=== PATIENT | female | born 1950 | race Caucasian/White ===

== ENCOUNTER 2016-10-21 08:25 | Inpatient (IN) | payer MEDICAID ==
[~2016-10-21] VITALS: Ht 160 cm; Wt 52.2 kg
[2016-10-21] MEDS ORDERED: morphine 2 MG INJ IV STA (08:36)
[2016-10-21] MEDS ORDERED: SOD CHLORIDE 0.9% 500 ML IV STA (08:36)
[2016-10-21] MEDS ORDERED: ONDANSETRON 4 MG INJ IV STA (08:36)
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
[2016-10-21 09:06] LABS: ADD UMIC YES; URINE BILIRUBIN (Dip) NEGATIVE (NEGATIVE); URINE BLOOD (Dip) NEGATIVE (NEGATIVE); URINE COLOR LT. YELLOW (YELLOW); URINE GLUCOSE (Dip) NEGATIVE (NEGATIVE); URINE KETONES (Dip) TRACE (NEGATIVE); URINE LEUKOCYTE ESTERASE (Dip) NEGATIVE (NEGATIVE); URINE NITRITE (Dip) NEGATIVE (NEGATIVE); URINE TOTAL PROTEIN (Dip) TRACE (NEGATIVE); URINE UROBILINOGEN (Dip) 0.2 E.U./dL (0.1-1.0)
[2016-10-21 09:07] LABS: BASOPHILS % 0.1 % (0.0-2.0); HEMATOCRIT 44.2 % (37.0-47.0); HEMOGLOBIN 14.4 g/dl (12.0-16.0); LYMPHOCYTES # 1.5 10^3/ul (0.8-2.9); LYMPHOCYTES % 9.5 % (15.0-51.0); MEAN CORPUSCULAR HEMOGLOBIN 28.2 pg (29.0-33.0); MEAN CORPUSCULAR HGB CONC 32.6 g/dl (32.0-37.0); MEAN CORPUSCULAR VOLUME 86.7 fl (82.0-101.0); MEAN PLATELET VOLUME 8.8 fl (7.4-10.4); MONOCYTE # 0.8 10^3/ul (0.3-0.9); MONOCYTES % 5.3 % (0.0-11.0); NEUTROPHIL # 13.6 10^3/ul (1.6-7.5); NEUTROPHILS % 85.1 % (39.0-77.0); PLATELET COUNT 237 10^3/UL (140-440); RED CELL DISTRIBUTION WIDTH 13.9 % (11.5-14.5)
[2016-10-21 09:10] LABS: CONDITION 1
[2016-10-21 09:25] LABS: ALBUMIN 4.2 g/dl (3.3-4.9); CHLORIDE 98 mmol/L (97-110); POTASSIUM 3.2 mmol/L (3.5-5.1); SODIUM 143 mmol/L (135-144)
[2016-10-21 09:27] LABS: BILIRUBIN,INDIRECT 0.4 mg/dl (0-1.1); BILIRUBIN,TOTAL 0.4 mg/dl (0.2-1.3); CREATININE 0.43 mg/dl (0.44-1.00)
[2016-10-21 09:28] LABS: ALANINE AMINOTRANSFERASE 14 IU/L (13-69); ALBUMIN/GLOBULIN RATIO 1.05; ALKALINE PHOSPHATASE 135 IU/L (42-121); ANION GAP 19 (8-16); ASPARTATE AMINO TRANSFERASE 19 IU/L (15-46); BLOOD UREA NITROGEN 11 mg/dl (7-20); CALCIUM 8.7 mg/dl (8.4-10.2); CARBON DIOXIDE 29 mmol/L (21-31); GLUCOSE 155 mg/dl (70-220); TOTAL PROTEIN 8.2 g/dl (6.1-8.1)
--- NOTE | 2016-10-21 09:33 | RADRPT ---
PROCEDURE: CT Abdomen and Pelvis without contrast. CLINICAL INDICATION: Abdominal pain TECHNIQUE: CT scan of the abdomen and pelvis without contrast was performed on a multidetector hig h-resolution CT scanner. The patient was scanned without intravenous contrast. Coronal and sagittal reformatted images were obtained from the axial source images. Images were reviewed on a high-resol [employer] PACS workstation. The total exam CTDI equals 5.18 mGy and the total exam DLP equals 276.89 mGy -cm. COMPARISON: None FINDINGS: CT abdomen: The lung bases are remarkable for diffuse centrilobular emphysema. The heart size is normal, withou t pericardial thickening or effusion. The liver is normal in size and density without focal mass or intrahepatic biliary dilatation. The spleen is normal in size and homogeneous in density. The sto mach is partially collapsed, but is grossly unremarkable. The pancreas as visualized is normal. The gallbladder is markedly distended with abnormal wall thickening. No gallstone is identified by CT. There is no evidence for biliary dilatation. The adrenal glands are symmetric and normal. The kidneys are symmetrically unremarkable as well. There is 1-2 mm nonobstructing stone in the lower po le right kidney. The aorta is of normal caliber. Aortic vascular calcifications are present. There is no retroperit herrera lymphadenopathy. The andrea hepatis region is clear. There is diverticulosis of the descendin g and sigmoid colon. There is focal wall thickening of the distal descending colon with surrounding inflammatory changes in keeping with acute diverticulitis. No peridiverticular abscess is identifi ed. CT pelvis: The small bowel loops situated within the pelvis are unremarkable. There is a normal appendix. The uterus is surgically absent. There is 2.3 cm hypodensity in the left adnexa. The pelvic sidewalls and inguinal regions are clear. The sigmoid colon and rectum are remarkable for sigmoid diverticulo sis. No mass, lymphadenopathy, or free fluid is seen. No acute inflammation is seen. The surround ing osseous structures are remarkable for degenerative spondylosis of the spine. No osteolytic or o steoblastic lesion is detected. IMPRESSION: 1. Extensive diverticulosis of the descending and sigmoid colon with focal thickening of the distal descending colon with surrounding pericolonic stranding in keeping with acute diverticulitis. No p eridiverticular abscess. 2. Markedly distended gallbladder with abnormal wall thickening. No significant surrounding inflam matory changes are seen. If there is clinical concern for acute cholecystitis. Ultrasound would be helpful. 3. Normal appendix. 4. Status post hysterectomy. Approximately 2.3 cm hypodensity in the left adnexa. Pelvic ultrasou nd can be considered for further evaluation. 5. 1-2 mm tiny nonobstructing stone in the lower pole right kidney. RPTAT: BB .Susan Ward MD, MD Date Time Electronically viewed and signed by .Susan Ward MD, on 10/21/2016 09:32 .O/
[2016-10-21 09:36] LABS: SQUAMOUS EPITHELIAL CELL,UR MODERATE; URINE RBCS 0-2 /HPF (0)
[2016-10-21 09:42] LABS: TROPONIN-I < 0.012 ng/ml (0.00-0.12)
[2016-10-21] MEDS ORDERED: PIPER-TAZO 3.375 GM IV (PMX) 100 ML IVPB ONE (10:00)
--- NOTE | 2016-10-21 10:45 | RADRPT ---
PROCEDURE: US Abdomen (right upper quadrant). CLINICAL INDICATION: Abdominal pain TECHNIQUE: Multiple real-time longitudinal and transverse images of the right upper quadrant of th e abdomen were acquired utilizing a curved array transducer. Images were reviewed on a high-resoluti on PACS workstation. COMPARISON: CT abdomen and pelvis with a FINDINGS: The liver is normal in size and echogenicity without focal mass or intrahepatic biliary dilatation. The gallbladder is distended containing multiple stones and sludge. There is gallbladder wall thic kening measures up to 6 mm. No intra or extrahepatic biliary dilatation is seen. The common bile du ct measures 6-7 mm in maximal dimension. The pancreas is obscured by overlying bowel gas. No free fluid is identified. The right kidney measures 10.6 cm in length. There is normal echogenicity within the right kidney. There is no perinephric fluid collection. No hydronephrosis, mass, or calculus is seen. IMPRESSION: 1. Distended gallbladder containing multiple gallstones and sludge with abnormal wall thickening fierro ggesting acute cholecystitis in the correct clinical settings. 2. No biliary ductal dilatation. RPTAT: EE .Susan Ward MD, Date Time Electronically viewed and signed by .Susan Ward MD, on 10/21/2016 10:45 .O/
[2016-10-21 11:00] VITALS: TEMP 98.4
[2016-10-21] MEDS ORDERED: ONDANSETRON 4 MG INJ IV PRN ×2 (11:00→11:30)
[2016-10-21] MEDS ORDERED: ACETAMINOPHEN 325 MG TAB PO PRN (11:00)
--- NOTE | 2016-10-21 11:02 | ERA ---
ER Documentation Chief Complaint Date/Time DATE: 10/21/16 TIME: 10:55 Chief Complaint ABDOMINAL PAIN WITH N/V SINCE LAST NIGHT HPI 65-year-old female history of asthma, hyperlipidemia who presents with 12-24 hours of symptoms that include epigastric abdominal discomfort that is moderate associated with nonbloody nonbilious emesis, no constipation, no diarrhea. No fevers or chills, no chest pain or shortness of breath. ROS All systems reviewed and are negative except as per history of present illness. Medications Home Meds No Active Prescriptions or Reported Meds Allergies Allergies: Coded Allergies: No Known Allergy (Unverified , 10/21/16) PMhx/Soc History of Surgery: Yes (HYSTERECTOMY ) Hx Alcohol Use: No Hx Substance Use: No Hx Tobacco Use: No Smoking Status: Never smoker FmHx Family History: No diabetes Physical Exam Vitals Vital Signs Date Time Temp Pulse Resp B/P Pulse Ox O2 Delivery O2 Flow Rate FiO2 10/21/16 08:27 97.4 83 18 147/60 97 Physical Exam General: Well developed, well nourished, no acute distress Head: Normocephalic, atraumatic. Eyes: Pupils equally reactive, EOM intact ENT: Moist mucous membranes Neck: Supple, no lymphadenopathy Respiratory: Lungs clear bilaterally, no distress Cardiovascular: RRR, no murmurs, rubs, or gallops Abdominal: Soft, tenderness of epigastrium, negative Aldrich sign, no pulsatile mass, no tenderness to McBurney's point, no peritonitis : Deferred MSK: No edema, no unilateral swelling, 5/5 strength Neurologic: Alert and oriented, moving all extremities, normal speech, no focal weakness, no cerebellar signs Skin: No rash Psych: Normal mood Result Diagram: 10/21/16 0845 10/21/16 0845 Results 24 hrs Laboratory Tests Test 10/21/16 08:45 10/21/16 09:00 Alanine Aminotransferase (ALT/SGPT) 14IU/L Albumin 4.2g/dl Albumin/Globulin Ratio 1.05 Alkaline Phosphatase 135IU/L Anion Gap 19 Aspartate Amino Transf (AST/SGOT) 19IU/L Basophils # 0.010^3/ul Basophils % 0.1% Blood Morphology Comment Blood Urea Nitrogen 11mg/dl Calcium Level 8.7mg/dl Carbon Dioxide Level 29mmol/L Chloride Level 98mmol/L Creatinine 0.43mg/dl Direct Bilirubin 0.00mg/dl Eosinophils # 0.010^3/ul Eosinophils % 0.0% Globulin 4.00g/dl Glucose Level 155mg/dl Hematocrit 44.2% Hemoglobin 14.4g/dl Indirect Bilirubin 0.4mg/dl Lipase 26U/L Lymphocytes # 1.510^3/ul Lymphocytes % 9.5% Mean Corpuscular Hemoglobin 28.2pg Mean Corpuscular Hemoglobin Concent 32.6g/dl Mean Corpuscular Volume 86.7fl Mean Platelet Volume 8.8fl Monocytes # 0.810^3/ul Monocytes % 5.3% Neutrophils # 13.610^3/ul Neutrophils % 85.1% Nucleated Red Blood Cells # 0.010^3/ul Nucleated Red Blood Cells % 0.0/100WBC Platelet Count 80604^3/UL Potassium Level 3.2mmol/L Red Blood Count 5.1010^6/ul Red Cell Distribution Width 13.9% Sodium Level 143mmol/L Total Bilirubin 0.4mg/dl Total Protein 8.2g/dl Troponin I < 0.012ng/ml White Blood Count 16.010^3/ul Urine Bilirubin NEGATIVE Urine Clarity CLEAR Urine Color LT. YELLOW Urine Glucose NEGATIVE% Urine Hemoglobin NEGATIVE Urine Ketones TRACE Urine Leukocyte Esterase NEGATIVE Urine Microscopic RBC 0-2/HPF Urine Microscopic WBC 0-2/HPF Urine Nitrite NEGATIVE Urine Specific [place] 1.020 Urine Squamous Epithelial Cells MODERATE Urine Total Protein TRACE Urine Urobilinogen 0.2 E.U./dL Urine pH 6.0 Current Medications Medications (Trade) Dose Ordered Sig/Sumi Route PRN Reason Start Time Stop Time Status Last Admin Dose Admin Sodium Chloride (NS) 500 ml @ 500 mls/hr Q1H STAT IV 10/21/16 08:36 10/21/16 09:35 DC 10/21/16 08:59 Morphine Sulfate (morphine) 2 mg ONCE STAT IV 10/21/16 08:36 10/21/16 08:38 DC 10/21/16 08:59 Ondansetron HCl 4 mg 4 mg ONCE STAT IV 10/21/16 08:36 10/21/16 08:38 DC 10/21/16 08:59 Piperacillin Sod/ Tazobactam Sod (Zosyn 3.375gm/ 100 ml (Pmx)) 100 ml @ 200 mls/hr ONCE ONCE IVPB 10/21/16 10:00 10/21/16 10:29 DC 10/21/16 10:14 Procedures/MDM EKG, MONITORS, & DIAGNOSTIC IMAGING: EKG: I reviewed and interpreted a 12-lead EKG. Rhythm: Normal sinus rhythm Ectopy: None Intervals: No abnormalities ST segments: No elevations or depressions T waves: No contiguous inversions Chest x-ray: I reviewed and interpreted a 1 view of the chest Mediastinum: No enlargement Cardiac silhouette: No cardiomegaly Airspace: Clear lung [place] bilaterally without evidence of pneumothorax Bones: No evidence of fracture CT a/p IMPRESSION: 1. Extensive diverticulosis of the descending and sigmoid colon with focal thickening of the distal descending colon with surrounding pericolonic stranding in keeping with acute diverticulitis. No peridiverticular abscess. 2. Markedly distended gallbladder with abnormal wall thickening. No significant surrounding inflammatory changes are seen. If there is clinical concern for acute cholecystitis. Ultrasound would be helpful. 3. Normal appendix. 4. Status post hysterectomy. Approximately 2.3 cm hypodensity in the left adnexa. Pelvic ultrasound can be considered for further evaluation. 5. 1-2 mm tiny nonobstructing stone in the lower pole right kidney. RPTAT: BB US gallbladder: IMPRESSION: 1. Distended gallbladder containing multiple gallstones and sludge with abnormal wall thickening suggesting acute cholecystitis in the correct clinical settings. 2. No biliary ductal dilatation. LAB INTERPRETATION: Leukocytosis, no evidence of hepatobiliary obstruction MEDICAL DECISION MAKING: The patient presents with epigastric abdominal pain. Given her age this raises the concern for possible acute intra-abdominal process. Consider hepatobiliary process versus colitis. Low clinical concern for cardiac etiology. CT imaging of the abdomen and pelvis is certainly indicated given her age. ER COURSE: The patient has leukocytosis with left shift. No evidence of hepatobiliary obstruction however the patient's CT shows evidence of diverticulitis with possible concomitant acute cholecystitis. The patient's location of her pain suggests more acute cholecystitis rather than diverticulitis. Regardless the patient was given Zosyn and IV fluids. The patient only has 1 out of 4 Sirs criteria therefore this is not consistent with severe sepsis or septic shock. No indication for blood cultures, lactic acid or 30 cc/kg of saline. The patient will benefit from inpatient hospitalization and general surgery consultation. Medical Surgical Tech used to inform the family. I kept the patient and/or family informed of laboratory and diagnostic imaging results throughout the emergency room course. DISPOSITION PLAN: Medical surgical admission for management of acute diverticulitis and acute cholecystitis. CONSULTATION: Accepting care team and consultations: I discussed the current laboratory data, diagnostic imaging and emergency care provided. Admitting team: Dr. Rosado Admitting team indication: Insurance directed Consulting services: General surgeon Dr. Nael Matthews was notified Departure Diagnosis: Primary Impression: Acute cholecystitis Additional Impressions: Acute diverticulitis Leukocytosis Qualified Code: D72.829 - Leukocytosis, unspecified type Condition: Stable JOCELYNE GUILLEN MD Oct 21, 2016 11:01
[2016-10-21] MEDS ORDERED: SOD CHLORIDE 0.9% 1,000 ML IV SCH (11:04)
[2016-10-21] MEDS ORDERED: NACL 0.9% 3 ML SYG IV SCH (11:30)
[2016-10-21] MEDS ORDERED: ACETAMINOPHEN 650 MG SUPP PR PRN (11:30)
[2016-10-21] MEDS ORDERED: morphine 2 MG INJ IV PRN (11:30)
--- NOTE | 2016-10-21 11:35 | CONS ---
Date/Time of Note Date/Time of Note DATE: 10/21/16 TIME: 11:34 Assessment/Plan Assessment/Plan Additional Assessment/Plan [facility] INITIAL INPATIENT CONSULTATION NOTE ASSESSMENT AND PLAN: A very-pleasant 65-year-old lady with comorbid issues of history of asthma and hyperlipidemia presenting with biliary colic and possible early acute cholecystitis. Elevated alkaline phosphatase. MRCP is needed and I recommended laparoscopic cholecystectomy in a semi-elective fashion after above , but the decision to operate and to get consent has not been completed until after MRCP. I answered all the patient's and family's questions to the best my ability and I believe that they appeared to understand and wish to proceed with the plan. With above assessment, I've recommended the followin. MRCP 2. Agree with admission 3. Evaluate for decision to operate after above Thank you very much for having me involved in the care of this very pleasant lady and her wonderful family. I will continue to follow her along with you closely and will be available to answer any questions at area code [phone]. TOTAL VISIT TIME: 45 minutes of which more than half was spent in [id number] discussion with the patient, discussions with family, as well as coordination of care between multiple physicians and providers. Disclaimer: Inadvertent spelling and grammatical errors are likely due to EHR/ dictation software use and do not reflect on the quality of delivered patient care. Also, please note that the electronic time recorded on this node does not necessarily reflect the actual time of the visit. PLACE OF SERVICE: [facility], emergency department DATE OF CONSULTATION: 10/21/2016 HISTORY OF PRESENT ILLNESS: The patient is a very pleasant 65-year-old lady with comorbid issues of history of asthma and hyperlipidemia presenting with a few day history of worsening right upper quadrant abdominal pain associated with nausea and non-bloody vomit. No prior similar episodes in the past. Patient does not report any hematemesis or blood in the stool or urine. Last bowel movement was yesterday as well as flatus. No reported chronic issues with constipation or diarrhea. No changes in hearing or vision, difficulty with breathing or swallowing, prior cardiopulmonary disease new skin rashes, joint pain, musculoskeletal disease, neurologic, psychiatric, or psychologic problems. Patient described the pain as a right upper quadrant type pain without radiation, between 8 to 10 out of 10 in severity and mostly dull in character. At my visit, the patient did have significant pain complaints. PAST MEDICAL HISTORY 1. Asthma 2. Hyperlipidemia PAST SURGICAL HISTORY None ALLERGIES: NO KNOWN DRUG ALLERGIES MEDICATIONS None SOCIAL HISTORY: The patient lives with family. - Tob; - ETOH; - IVDU FAMILY HISTORY: Diabetes. There are no other significant medical, surgical or oncologic issues in the family as reported by the patient or reflected in the chart. REVIEW OF SYSTEMS: No pertinent positives or pertinent negatives in a complete 14 point review of systems other than mentioned elsewhere in the note. PHYSICAL EXAMINATION GENERAL: The patient appears to be a very pleasant lady of descent lying in bed, appearing stated age, slightly overweight and otherwise in no acute distress. BMI 20.5 VITAL SIGNS: AVSS (please also see below) HEENT: Normocephalic and atraumatic. Extraocular muscles and hearing are grossly intact bilaterally and symmetrically. Sclerae are nonicteric. Oral cavity is clear; oral mucosa appear to be pink and moist. Dentition: fair. NECK: Supple. There is no lymphadenopathy or JVD. There is no submental, submandibular or supraclavicular lymphadenopathy. CHEST: Rises symmetrically with each breath; patient is breathing comfortably. There are no audible wheezes, rales or rhonchi on the gross exam. HEART: Pulse is regular and palpable on the right wrist. Capillary refill is normal. Carotid pulses are palpable bilaterally and symmetrically in the neck. EXTREMITIES: Lower extremities contain no pitting edema around the ankles bilaterally and symmetrically. ABDOMEN: Abdomen is soft, tender to palpation in the right upper quadrant and nondistended. No evidence of ascites, organomegaly, caput medusae, engorged subcutaneous veins, or other abnormalities. There are no peritoneal signs or guarding. SKIN: Appears to be pink and feels warm to touch. NEUROLOGIC: Awake, alert, and follows commands appropriately. LABORATORY DATA: See below IMAGING: See electronic chart. Please note that I've personally reviewed all pertinent available images and I agree in general with their overall reported findings. Ultrasound of the right upper quadrant and CT scan of abdomen and pelvis reviewed and I agree in the findings. Consultation Date/Type/Reason Admit Date/Time Social History Smoking Status: Never smoker Exam/Review of Systems Vital Signs Vitals Vital Signs Date Time Temp Pulse Resp B/P Pulse Ox O2 Delivery O2 Flow Rate FiO2 10/21/16 11:00 98.4 68 18 140/68 97 Results Result Diagram: 10/21/16 0845 10/21/16 0845 Results 24 hrs Laboratory Tests Test 10/21/16 08:45 10/21/16 09:00 Alanine Aminotransferase (ALT/SGPT) 14 Albumin 4.2 Albumin/Globulin Ratio 1.05 Alkaline Phosphatase 135 H Anion Gap 19 H Aspartate Amino Transf (AST/SGOT) 19 Basophils # 0.0 Basophils % 0.1 Blood Morphology Comment Blood Urea Nitrogen 11 Calcium Level 8.7 Carbon Dioxide Level 29 Chloride Level 98 Creatinine 0.43 L Direct Bilirubin 0.00 Eosinophils # 0.0 Eosinophils % 0.0 Globulin 4.00 H Glucose Level 155 Hematocrit 44.2 Hemoglobin 14.4 Indirect Bilirubin 0.4 Lipase 26 Lymphocytes # 1.5 Lymphocytes % 9.5 L Mean Corpuscular Hemoglobin 28.2 L Mean Corpuscular Hemoglobin Concent 32.6 Mean Corpuscular Volume 86.7 Mean Platelet Volume 8.8 Monocytes # 0.8 Monocytes % 5.3 Neutrophils # 13.6 H Neutrophils % 85.1 H Nucleated Red Blood Cells # 0.0 Nucleated Red Blood Cells % 0.0 Platelet Count 237 Potassium Level 3.2 L Red Blood Count 5.10 Red Cell Distribution Width 13.9 Sodium Level 143 Total Bilirubin 0.4 Total Protein 8.2 H Troponin I < 0.012 White Blood Count 16.0 H Urine Bilirubin NEGATIVE Urine Clarity CLEAR Urine Color LT. YELLOW Urine Glucose NEGATIVE Urine Hemoglobin NEGATIVE Urine Ketones TRACE H Urine Leukocyte Esterase NEGATIVE Urine Microscopic RBC 0-2 Urine Microscopic WBC 0-2 Urine Nitrite NEGATIVE Urine Specific [place] 1.020 Urine Squamous Epithelial Cells MODERATE Urine Total Protein TRACE Urine Urobilinogen 0.2 E.U./dL Urine pH 6.0 Medications Medications Current Medications Sodium Chloride (NS) 1,000 ml @ 75 mls/hr [id number] IV ; Start 10/21/16 at 11:04 Ondansetron HCl (Zofran Inj) 4 mg Q6H PRN IV NAUSEA AND/OR VOMITING; Start at 11:30 Acetaminophen (Tylenol Supp) 650 mg Q6H PRN [place] PAIN LEVEL 1-3 OR FEVER; Start 10/21/16 at 11:30 Morphine Sulfate (morphine) 2 mg Q4H PRN IV SEVERE PAIN LEVEL 7-10; Start at 11:30 Famotidine 20 mg 20 mg DAILY IV ; Start 10/21/16 at 21:00 Piperacillin Sod/ Tazobactam Sod (Zosyn 3.375gm/ 100 ml (Pmx)) 100 ml @ 200 mls /hr Q6 IVPB ; Start 10/21/16 at 18:00 ZULEMA POTTER M.D. Oct 21, 2016 11:35
[2016-10-21 12:30] VITALS: BP 114/54; PULSE 71; RESP 20; Ht 160 cm; Wt 52.2 kg
[2016-10-21] MEDS ORDERED: ALBUTEROL/IPRATROPIUM (NEB) 3 ML AMP HHN PRN (12:30)
[2016-10-21] MEDS ORDERED: hydrALAzine 20 MG INJ IV PRN (13:00)
[2016-10-21] MEDS: NS + KCL 20 MEQ 1,000 ML IV SCH ×2 (13:01→23:00)
[2016-10-21 13:07] LABS: MAGNESIUM 1.8 mg/dl (1.7-2.5)
[2016-10-21 13:08] LABS: CHOL/HDL RATIO 3.5 RATIO
[2016-10-21 13:25] LABS: T3 UPTAKE 31.6 % (23.5-40.5)
--- NOTE | 2016-10-21 13:35 | HP ---
DATE OF ADMISSION: 10/21/2016 TIME OF EVALUATION: 12:30 REASON FOR ADMISSION: Abdominal pain with associated nausea and vomiting. CONSULTATIONS: Dr. Jamie Matthews, General Surgery. HISTORY OF PRESENT ILLNESS: This is a 65-year-old female with past medical history of COPD and hyperlipidemia, who presented to the emergency room with chief complaint of abdominal pain with multiple episodes of bilious vomiting that started on 10/20/2016. The patient verbalized that she had 10 episodes of vomiting since the night of 10/20/2016. The patient was also complaining of pyrosis. The patient denied any constipation or diarrhea. The patient denied any fevers, chills, dyspnea, or chest pain. The patient has chronic complaint of vaginal prolapse, although the patient had a hysterectomy approximately 14 years ago. The patient verbalized that she has been having this prolapse for the past 1 year or so. Also, the patient mentioned that she has history of asthma. As per the imaging studies, the patient has centrilobular emphysema, consistent with COPD. Nevertheless, the patient denied any history of smoking. In the emergency room, the patient underwent a gallbladder ultrasound that showed distended gallbladder containing multiple gallstones and sludge with abnormal wall thickening suggestive of acute cholecystitis with no biliary ductal dilatation. The patient also underwent a CT scan of the abdomen and pelvis that showed extensive diverticulosis of the descending and sigmoid colon with focal thickening of the distal descending colon with surrounding pericolonic stranding, consistent with diverticulitis and no evidence of peridiverticular abscess. CT also revealed markedly distended gallbladder with abnormal wall thickening. The CT scan also showed approximately 2.3 cm hypodensity in the left adnexa. The patient had leukocytosis with a WBC of 16.0. The patient remained afebrile in the emergency room. The patient was treated with IV Zosyn, IV analgesics, and IV fluids in the emergency room. PAST MEDICAL HISTORY: COPD, dyslipidemia, and vaginal prolapse. PAST SURGICAL HISTORY: Hysterectomy. HOME MEDICATIONS: The patient takes anti-lipids at home. The patient does not know the name of this medication. The patient also takes p.r.n. inhaled bronchodilators. The patient does not know the name of this medication. ALLERGIES: NO KNOWN DRUG ALLERGIES. SOCIAL HISTORY: The patient lives at home with her daughter. Denies any use of tobacco, alcohol, or illicit drugs. REVIEW OF SYSTEMS: A 12-point review of systems was made and review of systems was negative, other than what is mentioned in history of present illness. PHYSICAL EXAMINATION: VITAL SIGNS: Temperature 98.4, pulse rate 68, respiratory rate 18, blood pressure 140/68, oxygen saturation 97% on room air. GENERAL: This is a thin, elderly, female, lying in bed, in no apparent distress. HEENT: Head normocephalic and atraumatic. Eyes: Anicteric sclerae. Conjunctivae clear. ENT: Nasal septum is midline. Oral mucosa is dry. NECK: Supple. No JVD noticed. RESPIRATORY: Bilaterally diminished breath sounds. A few fine rales heard. No use of accessory muscles of respiration. CARDIAC: Regular rate and rhythm. Occasional skipped beats. No audible murmur. ABDOMEN: Soft. Diffuse tenderness in the epigastric area, right upper quadrant negative. Abdominal guarding. No rebound tenderness. Bowel sounds hypoactive in all 4 quadrants. GENITOURINARY: Vaginal prolapse. EXTREMITIES: No edema. Peripheral pulses palpable. NEUROLOGIC: The patient is awake, alert, and oriented. Cranial nerves are grossly intact. LABORATORY AND DIAGNOSTIC DATA: 1. 12-lead EKG: Normal sinus rhythm with premature ventricular complexes. Left axis deviation. 2. CBC: WBC 16.0, hemoglobin 14.4, hematocrit 44.2, platelet count 237. 3. CMP: Sodium 143, potassium 3.2, chloride 198, carbon dioxide 29, anion gap 19, BUN 11, creatinine 0.43, glucose 155, calcium 8.7, total bilirubin 0.4, indirect bilirubin 0.4, AST 19, ALT 14, alkaline phosphatase 135. Troponin I less than 0.01. Total protein 8.2. Albumin 4.2, lipase 26. 4. Urinalysis: Urine nitrite negative. Urine ketones trace. Urine leukocyte esterase negative. Urine microscopic WBC 0-2. 5. Chest x-ray. Hyperaeration with no radiographic evidence of acute cardiopulmonary disease. Slight prominence of interstitial markings at the lung bases, This may reflect chronic disease. Atherosclerotic calcifications of the thoracic aorta. 6. CT scan of the abdomen and pelvis: Extensive diverticulosis of the descending and sigmoid colon with focal thickening of the distal descending colon with surrounding pericolonic stranding, suggesting acute diverticulitis. No peridiverticular abscess. Markedly distended gallbladder with abnormal wall thickening. No significant surrounding inflammatory changes are seen. Status post hysterectomy. Approximately 2.3 cm hypodensity in the left adnexa. 1 to 2 minimal, tiny, nonobstructing stones in the right pole of the lower kidney. 7. Gallbladder ultrasound: Distended gallbladder containing multiple gallstones and sludge, with abnormal wall thickening, suggesting acute cholecystitis in correct clinical setting. No biliary ductal dilatation. IMPRESSION: This is a 65-year-old female who came to the emergency room with chief complaint of abdominal pain, with associated nonbilious, nausea and vomiting, who was found to have evidence of cholecystitis, as well as diverticulitis, who will be admitted here for further treatment and evaluation. ASSESSMENT AND PLAN: 1. Acute abdominal pain. Imaging positive for acute cholecystitis. The patient will be started on empiric antibiotics, including coverage for anaerobes. General surgery was already consulted on the patient. The patient most probably needs a laparoscopic cholecystectomy. MRCP will be ordered on this patient for further evaluation of the biliary tree. 2. Diverticulitis. CT scan showing evidence of distal descending colon diverticulitis, with no evidence of peridiverticular abscess. The patient will be kept n.p.o. The patient will be maintained on empiric antibiotics, including coverage for anaerobes. 3. Leukocytosis, most probably secondary to #1 and #2. The patient will be maintained on empiric antibiotics. Pancultures will be ordered on this patient. 4. Chronic obstructive pulmonary disease. The patient verbalized that she has asthma; however, imaging findings are consistent with COPD. The patient will be started on inhaled bronchodilators on a routine basis and on a p.r.n. basis. The patient will also be started on maintenance inhalers. ABG will be obtained to evaluate her baseline oxygen saturation and to evaluate for any CO2 retention. 5. Hypokalemia. The patient's potassium will be repleted. Serum magnesium level will be obtained. 6. Dyslipidemia. The patient will be kept n.p.o. A fasting lipid panel will be obtained. The patient apparently was taking statins at home. This will not be resumed at this time, since the patient has underlying acute cholecystitis and some transaminitis. 7. Vaginal prolapse. It is unclear whether the patient had a total hysterectomy or partial hysterectomy 14 years ago. The patient was having this complaint of vaginal prolapse for the past 1 year. Will obtain a transvaginal ultrasound to further evaluate this. PLAN: The patient will be admitted to inpatient medical/surgical floor. The patient will be kept n.p.o. The patient will be started on IV fluids. The patient will be started on DVT prophylaxis and gastrointestinal prophylaxis. THE PATIENT WILL REMAIN A FULL CODE. Activities will be as tolerated. The rest of the patient's management will be based on the clinical course, the results of diagnostic studies, and input from consultants. Based on the patient's clinical presentation, she most probably requires at least 2 midnights' stay for further management and evaluation of her clinical presentation. The case and management of this patient was fully discussed with Dr. Lee. Approximately 50 minutes was spent on the history and physical of this patient. KUN LEE MD, AM/DAMIAN Conf#: [id number] DID#: [id number] MTDD
[2016-10-21 13:39] LABS: THYROID STIMULATING HORMONE 0.526 MIU/L (0.465-4.680)
[2016-10-21] MEDS ORDERED: POTASSIUM CHLORIDE 30 MEQ in DEXTROSE 5% 250 ML IVPB ONE (14:00)
[2016-10-21] MEDS: ALBUTEROL/IPRATROPIUM (NEB) 3 ML AMP HHN SCH ×2 (14:29→19:37)
[2016-10-21 14:47] LABS: AADO2 Arterial 46.4 mmHg (7.0-24.0); Allen Test ACCEPTAB; Arterial Base Excess 2.7 mmol/L (-3.0-3); Arterial COHb 0.5 % (0.0-3.0); Arterial Fraction of Oxyhgb 90.6 % (93.0-99.0); Arterial HCO3 26.6 mmol/L (22.0-26.0); Arterial MetHb 0.2 % (0.0-1.5); Arterial Total Hemglobin 14.1 g/dl (12.0-18.0); MODE ROOM AIR
[2016-10-21] MEDS ORDERED: LORAZEPAM 2 MG INJ IV ONE (15:00)
[2016-10-21] MEDS: PIPER-TAZO 3.375 GM IV (PMX) 100 ML IVPB SCH (17:07)
[2016-10-21 20:00] VITALS: BP 107/59; PULSE 110; RESP 18
[2016-10-21] MEDS: SALMETEROL/FLUTICASONE 250/50 INHA INH SCH (21:00)
--- NOTE | 2016-10-21 21:29 | RADRPT ---
PROCEDURE: MR Abdomen and MRCP. CLINICAL INDICATION: Right upper quadrant pain. TECHNIQUE: MRI abdomen without contrast and MRCP was performed on a 1.5 Rachelle high field scanner. 3-D coronal rotating MIP images of the biliary tree are available for review. COMPARISON: None available FINDINGS: MRI Abdomen: The liver is normal in size and homogeneous in signal intensity. No liver mass lesion or intrahepatic biliary dilatation is seen. The spleen is normal in size and homogeneous in signal intensity. The stomach is partially collapsed but grossly unremarkable. The pancreas is unremarkable. The adrenal glands and kidneys are symmetric and appear normal. The aorta is of normal caliber. There is no retroperitoneal lymphadenopathy. The bowel and mesentery, as visualized, are unremarkable. MRCP: The gallbladder contains multiple sub centimeter calculi, measuring up to 8 mm. Gallbladder wall is thickened at 5 mm. The biliary tree is not dilated. Common bile duct measures 6 mm. No intrahepatic or extrahepatic biliary ductal dilatation is present. The pancreatic duct is unremarkable. 4 mm calculus is seen in the distal common bile duct, 1 cm above the ampulla of Vater. IMPRESSION: 1. Cholelithiasis with numerous sub centimeter gallstones. 2. Gallbladder wall thickening. This finding may indicate acute cholecystitis. 3. Choledocholithiasis with 4 mm calculus in the distal common bile duct, 1 cm above the ampulla of Vater. 4. No evidence of biliary obstruction. Intrahepatic and extrahepatic bile ducts are normal in diam eter. 5. 1 cm benign-appearing cyst in the upper pole right kidney. RPTAT: HLDM .Luis Ha MD, Date Time Electronically viewed and signed by .Luis Ha MD, MD on 10/21/2016 21:29 .MGera
[2016-10-21] MEDS: FAMOTIDINE 20 MG INJ IV SCH (21:55)
[2016-10-22] MEDS: PIPER-TAZO 3.375 GM IV (PMX) 100 ML IVPB SCH ×5 (00:51→23:50)
[2016-10-22] MEDS: NS + KCL 20 MEQ 1,000 ML IV SCH ×2 (04:56→19:00)
[2016-10-22 06:14] LABS: BASOPHILS % 0.1 % (0.0-2.0); HEMATOCRIT 39.4 % (37.0-47.0); HEMOGLOBIN 12.8 g/dl (12.0-16.0); LYMPHOCYTES % 5.2 % (15.0-51.0); MEAN CORPUSCULAR HEMOGLOBIN 28.1 pg (29.0-33.0); MEAN CORPUSCULAR HGB CONC 32.4 g/dl (32.0-37.0); MEAN CORPUSCULAR VOLUME 86.6 fl (82.0-101.0); MONOCYTE # 1.2 10^3/ul (0.3-0.9); MONOCYTES % 5.9 % (0.0-11.0); NEUTROPHIL # 17.8 10^3/ul (1.6-7.5); NEUTROPHILS % 88.8 % (39.0-77.0); PLATELET COUNT 191 10^3/UL (140-440); RED BLOOD COUNT 4.54 10^6/ul (4.20-5.40); RED CELL DISTRIBUTION WIDTH 14.3 % (11.5-14.5); UNCORRECTED WBC 20.1 10^3/ul (4.8-10.8); WHITE BLOOD COUNT 20.1 10^3/ul (4.8-10.8)
[2016-10-22 06:16] LABS: ALBUMIN 3.4 g/dl (3.3-4.9); INR 1.24; PROTIME 15.7 Sec (12.2-14.2); PT RATIO 1.2
[2016-10-22 06:17] LABS: PARTIAL THROMBOPLASTIN TIME 33.2 Sec (25.0-35.0); POTASSIUM 3.3 mmol/L (3.5-5.1)
[2016-10-22 06:19] LABS: BILIRUBIN,INDIRECT 0.4 mg/dl (0-1.1); BILIRUBIN,TOTAL 0.4 mg/dl (0.2-1.3); CREATININE 0.49 mg/dl (0.44-1.00); TOTAL PROTEIN 6.8 g/dl (6.1-8.1)
[2016-10-22 06:20] LABS: CALCIUM 8.1 mg/dl (8.4-10.2)
[2016-10-22 06:24] LABS: MAGNESIUM 1.7 mg/dl (1.7-2.5); PHOSPHORUS 3.1 mg/dl (2.5-4.9)
[2016-10-22 06:49] LABS: CONDITION 1; LH ANALYZER COMMENTS 1; SUSPECT 1
[2016-10-22 07:30] VITALS: BP 97/45; RESP 20
[2016-10-22] MEDS: FAMOTIDINE 20 MG INJ IV SCH (08:21)
[2016-10-22] MEDS: SALMETEROL/FLUTICASONE 250/50 INHA INH SCH ×2 (08:21→21:23)
[2016-10-22] MEDS: ALBUTEROL/IPRATROPIUM (NEB) 3 ML AMP HHN SCH ×3 (08:48→19:43)
[2016-10-22] MEDS ORDERED: INFLUENZA VIRUS VACCINE 0.5 ML (DISPENSING) IM* ONE (09:00)
--- NOTE | 2016-10-22 09:44 | RADRPT ---
PROCEDURE: US Pelvis CLINICAL INDICATION: Vaginal prolapse TECHNIQUE: Sonographic evaluation of the pelvis was performed utilizing transabdominal technique. Curved array transabdominal transducer was utilized. Images were reviewed on the high-resolution Q.branch workstation. COMPARISON: CT abdomen and pelvis performed earlier the same day. FINDINGS: The uterus is not visualized. The ovaries are not visualized. There are no adnexal masses. There is no significant free fluid in the pelvis. Urinary bladder is unremarkable in appearance. IMPRESSION: 1. Nonvisualization of the uterus and ovaries. 2. No evidence of adnexal mass or free fluid. RPTAT: HLDM .Luis Ha MD, MD Date Time Electronically viewed and signed by .Luis Ha MD, on 10/21/2016 21:49 .M/
--- NOTE | 2016-10-22 10:34 | PN ---
Date/Time of Note Date/Time of Note DATE: 10/22/16 TIME: 10:33 Assessment/Plan VTE Prophylaxis VTE Prophylaxis Intervention: SCD's Lines/Catheters IV Catheter Type (from [facility]): Peripheral IV Urinary Cath still in place: No Assessment/Plan Chief Complaint/Hosp Course 1. Cholelithiasis. Imaging positive for acute cholecystitis. The patient will be maintained on empiric antibiotics, including coverage for anaerobes. General surgery following. 2. Choledocholithiasis. The patient needs an ERCP. Gastroenterology consult will be called. 3. Diverticulitis. CT scan showing evidence of distal descending colon diverticulitis, with no evidence of peridiverticular abscess. The patient will be kept n.p.o. The patient will be maintained on empiric antibiotics, including coverage for anaerobes. 4. Systemic inflammatory response syndrome. Most probably secondary to 1, 2, and 3. Continue empiric antibiotics. Will trend lactic acid levels. Continue IV hydration. Pending pancultures. 5. Chronic obstructive pulmonary disease. ABG on room air showing evidence of hypoxia. Continue inhaled bronchodilators. No evidence of any acute exacerbation. 5. Hypokalemia. The patient's potassium will be repleted. 6. Dyslipidemia. Fasting lipid panel suboptimal. Will resume statins once the patient is able to tolerate oral intake. 7. Prediabetes. Hemoglobin A1c 6.1%. The patient needs to be started on metformin once patient is able to tolerate oral intake. 8. Vaginal prolapse. Pelvic ultrasound showing absence of uterus and ovaries and no evidence of any adnexal mass or free fluid. Patient needs outpatient follow-up with a pelvic surgeon. 9. Fluids, electrolytes, and nutrition. Continue IV fluids. NPO except for medications. 10. DVT prophylaxis. Bilateral sequential compression devices. 11. Gastrointestinal prophylaxis. Histamine 2 receptor blockers. 12. Plan. Replete potassium. Continue pain control. Continue antibiotics. Call a gastroenterology consult. Case discussed with Dr. Rosado. Problems: Subjective 24 Hr Interval Summary Free Text/Dictation Had a febrile episode in the AM. No nausea or vomiting. Abdominal pain well controlled. Exam/Review of Systems Vital Signs Vitals Vital Signs Date Time Temp Pulse Resp B/P Pulse Ox O2 Delivery O2 Flow Rate FiO2 10/22/16 08:48 96 10/22/16 08:48 95 24 Nasal Cannula 2.0 10/22/16 07:30 102.1 97/45 10/21/16 14:50 21 Intake and Output 10/21/16 10/21/16 10/22/16 15:00 23:00 07:00 Intake Total 1600 ml 200 ml Balance 1600 ml 200 ml Exam GENERAL: This is a thin, elderly, female, lying in bed, in no apparent distress. HEENT: Head normocephalic and atraumatic. Eyes: Anicteric sclerae. Conjunctivae clear. ENT: Nasal septum is midline. Oral mucosa is dry. NECK: Supple. No JVD noticed. RESPIRATORY: Bilaterally diminished breath sounds. A few fine rales heard. No use of accessory muscles of respiration. CARDIAC: Regular rate and rhythm. Occasional skipped beats. No audible murmur. ABDOMEN: Soft. Diffuse tenderness in the epigastric area, right upper quadrant negative. Abdominal guarding. No rebound tenderness. Bowel sounds hypoactive in all 4 quadrants. GENITOURINARY: Vaginal prolapse. EXTREMITIES: No edema. Peripheral pulses palpable. NEUROLOGIC: The patient is awake, alert, and oriented. Cranial nerves are grossly intact. Results Result Diagram: 10/22/16 0509 10/22/16 0509 Results 24 hrs Laboratory Tests Test 10/21/16 12:45 10/22/16 05:09 Arterial Blood HCO3 26.6 H Arterial Blood Base Excess 2.7 Arterial Blood Oxygen Saturation 91.2 L Maximus Test ACCEPTAB Arterial Blood Gas Puncture Site Right Radial Arterial Blood Carboxyhemoglobin 0.5 Arterial Blood Date Drawn 10/21/2016 2:35:14 PM Arterial Blood Methemoglobin 0.2 Arterial Blood pCO2 (Temp correct) 38.5 Arterial Blood pH (Temp corrected) 7.457 H Arterial Blood pO2 (Temp corrected) 57.2 L Blood Gas A-a O2 Differential 46.4 H Blood Gas Modality ROOM AIR Blood Gas Notified Time 10/21/2016 2:46:55 PM Blood Gas Notified Whom RT Blood Gas Specimen Source Blood arterial Blood Gas Temperature 37.0 FiO2 21.0 Oxyhemoglobin Percent 90.6 L Total Hemoglobin 14.1 Activated Partial Thromboplast Time 33.2 Alanine Aminotransferase (ALT/SGPT) 22 Albumin 3.4 Albumin/Globulin Ratio 1.00 Alkaline Phosphatase 102 Anion Gap 13 Aspartate Amino Transf (AST/SGOT) 24 B-Type Natriuretic Peptide 2260 H Basophils # 0.0 Basophils % 0.1 Blood Morphology Comment Blood Urea Nitrogen 11 Calcium Level 8.1 L Carbon Dioxide Level 27 Chloride Level 104 Creatinine 0.49 Direct Bilirubin 0.00 Eosinophils # 0.0 Eosinophils % 0.0 Free Thyroxine 1.30 Globulin 3.40 H Glucose Level 168 Hematocrit 39.4 Hemoglobin 12.8 INR International Normalized Ratio 1.24 Indirect Bilirubin 0.4 Lymphocytes # 1.0 Lymphocytes % 5.2 L Magnesium Level 1.7 Mean Corpuscular Hemoglobin 28.1 L Mean Corpuscular Hemoglobin Concent 32.4 Mean Corpuscular Volume 86.6 Mean Platelet Volume 9.0 Monocytes # 1.2 H Monocytes % 5.9 Neutrophils # 17.8 H Neutrophils % 88.8 H Nucleated Red Blood Cells # 0.0 Nucleated Red Blood Cells % 0.0 Phosphorus Level 3.1 Platelet Count 191 Potassium Level 3.3 L Prothrombin Time 15.7 H Prothrombin Time Ratio 1.2 Red Blood Count 4.54 Red Cell Distribution Width 14.3 Sodium Level 141 Total Bilirubin 0.4 Total Protein 6.8 # White Blood Count 20.1 #H Medications Medications Current Medications Ondansetron HCl (Zofran Inj) 4 mg Q6H PRN IV NAUSEA AND/OR VOMITING; Start at 11:30 Acetaminophen (Tylenol Supp) 650 mg Q6H PRN CA PAIN LEVEL 1-3 OR FEVER Last administered on 10/22/16 08:21; Admin Dose 650 MG; Start 10/21/16 at 11:30 Morphine Sulfate (morphine) 2 mg Q4H PRN IV SEVERE PAIN LEVEL 7-10 Last administered on 10/21/16at 13:01; Admin Dose 2 MG; Start 10/21/16 at 11:30 Famotidine 20 mg 20 mg DAILY IV Last administered on 10/22/16 08:21; Admin Dose 20 MG; Start 10/21/16 at 21:00 Piperacillin Sod/ Tazobactam Sod (Zosyn 3.375gm/ 100 ml (Pmx)) 100 ml @ 200 mls /hr Q6 IVPB Last administered on 10/22/16 05:40; Admin Dose 200 MLS/HR; Start 10/21/16 at 18:00 Salmeterol Xinafoate/ Fluticasone (Advair 250/50 Diskus) 1 inh BID INH Last administered on 10/22/16 08:21; Admin Dose 1 INH; Start 10/21/16 at 21:00 Hydralazine HCl 10 mg 10 mg Q6H PRN IV SBP>160; Start 10/21/16 at 13:00 Potassium Chloride/Sodium Chloride (NS-KCl 20 Meq) 1,000 ml @ 100 mls/hr Q10H IV Last administered on 10/22/16 04:56; Admin Dose 100 MLS/HR; Start 10/21/16 at 13:00 KUN LUJAN NP Oct 22, 2016 10:33
[2016-10-22] MEDS ORDERED: PHYTONADIONE 10 MG/ML INJ SC ONE (11:30)
[2016-10-22] MEDS ORDERED: MAGNESIUM SULFATE 2 GM/50 ML 50 ML IVPB ONE (11:30)
--- NOTE | 2016-10-22 12:04 | PN ---
Date/Time of Note Date/Time of Note DATE: 10/22/16 TIME: 12:01 Assessment/Plan Lines/Catheters IV Catheter Type (from [facility]): Peripheral IV Klein in Place (from [facility]): No Assessment/Plan Assessment/Plan [facility] Inpatient Progress Note Date of Service: 10/22/16 Today's Assessment & Plan: Overall has remained stable with ongoing issues with abdominal pain. MRCP indicated choledocholithiasis. Patient requires gastrology evaluation and clearance of common bile duct. With above assessment, I've recommended the following for today: 1. GI consultation with consideration for ERCP 2. Laparoscopic cholecystectomy after above Thank you again for your great care of this very pleasant lady and her wonderful family. If there are any questions, please feel free to call me at . TOTAL VISIT TIME: 20 minutes of which more than half was spent in [id number] discussion with the patient as well as coordination of care between multiple physicians and providers. Disclaimer: Inadvertent spelling and grammatical errors are likely due to EHR/ dictation software use and do not reflect on the quality of delivered patient care. Also, please note that the electronic time recorded on this node does not necessarily reflect the actual time of the visit. Updated Clinical Summary: A very-pleasant 65-year-old lady with comorbid issues of history of asthma and hyperlipidemia presenting with biliary colic and possible early acute cholecystitis. Elevated alkaline phosphatase. MRCP 10/21/2016 demonstrated evidence for cholelithiasis as well as choledocholithiasis. Comorbidity/PMHx List: 1. Asthma 2. Hyperlipidemia Subjective: No major events or complaints other than abdominal pain, although improved since yesterday; under control with medications; no n/v/d; no sob or cp; - flatus; - BM; - activity Objective: Vitals: See below I's & O's: See below Exam: GENERAL: On exam, the patient was lying in bed and appeared to be comfortable and in no acute distress. ABDOMEN: Soft, nontender and nondistended. There are no peritoneal signs or guarding. SKIN: Skin appears to be pink and feels warm to touch. NEUROLOGIC: Patient is awake, alert, and follows commands appropriately. Labs: See below Exam/Review of Systems Vital Signs Vitals Vital Signs Date Time Temp Pulse Resp B/P Pulse Ox O2 Delivery O2 Flow Rate FiO2 10/22/16 08:48 96 10/22/16 08:48 95 24 Nasal Cannula 2.0 10/22/16 07:30 102.1 97/45 10/21/16 14:50 21 Intake and Output 10/21/16 10/21/16 10/22/16 14:59 22:59 06:59 Intake Total 1600 ml 200 ml Balance 1600 ml 200 ml Results Result Diagram: 10/22/16 0509 10/22/16 0509 ZULEMA POTTER M.D. Oct 22, 2016 12:03
[2016-10-22] MEDS ORDERED: POTASSIUM CHLORIDE 30 MEQ in DEXTROSE 5% 250 ML IVPB ONE (12:30)
[2016-10-22] MEDS ORDERED: INDOMETHACIN 50 MG SUPP PR ONE (12:34)
[2016-10-22] MEDS ORDERED: IOHEXOL 300MG/ML 30 ML BTL ONE (12:34)
[2016-10-22] MEDS ORDERED: PHYTONADIONE 10 MG/ML INJ ONE (12:54)
[2016-10-22] MEDS ORDERED: LIDOCAINE 2% (SDV) 5 ML INJ ONE (13:48)
[2016-10-22] MEDS ORDERED: SUCCINYLCHOLINE CHLORIDE 100 MG/5 ML SYG IV ONE (13:48)
[2016-10-22] MEDS ORDERED: ROCURONIUM 50 MG INJ ONE (13:48)
[2016-10-22] MEDS ORDERED: PROPOFOL 20 ML ONE (13:48)
[2016-10-22] MEDS ORDERED: GLYCOPYRROLATE 0.4 MG INJ ONE (13:48)
[2016-10-22] MEDS ORDERED: NEOSTIGMINE 3 MG/3 ML SYRINGE ONE (13:48)
[2016-10-22] MEDS ORDERED: MIDAZOLAM 1 MG/ML 2 ML INJ IV PRN (14:00)
[2016-10-22] MEDS ORDERED: FENTAnyl 50 MCG/ML VIAL IV PRN ×2 (14:00)
[2016-10-22] MEDS ORDERED: DIPHENHYDRAMINE 50 MG INJ IV PRN (14:00)
[2016-10-22] MEDS ORDERED: MEPERIDINE 25 MG INJ IV PRN (14:00)
[2016-10-22] MEDS ORDERED: METOCLOPRAMIDE 10 MG INJ IV PRN (14:00)
[2016-10-22] MEDS ORDERED: ONDANSETRON 4 MG INJ IV PRN (14:00)
[2016-10-22] MEDS ORDERED: METOCLOPRAMIDE 10 MG INJ ONE (14:25)
[2016-10-22] MEDS ORDERED: ONDANSETRON 4 MG INJ ONE (14:25)
[2016-10-22 15:06] VITALS: BP 119/63; RESP 18
--- NOTE | 2016-10-22 18:11 | GILP ---
DATE OF PROCEDURE: NAME OF PROCEDURE: ERCP, removal of the CBD stones, and placement of a CBD stent. PREOPERATIVE DIAGNOSIS: The patient presenting with a history of abdominal pain and MRCP showed thony dence of choledocholithiasis. Because of this, the procedure is performed to rule out choledocholit hiasis and remove the stones. POSTOPERATIVE DIAGNOSES: 1. Choledocholithiasis noted. Stones were removed. 2. Cholelithiasis was noted. 3. Common bile duct stent was placed and the procedure was terminated. DESCRIPTION OF PROCEDURE: After informed written consent was obtained, the patient was intubated by anesthesiologist, Dr. Bonilla. While the patient was intubated in the prone position, Olympus video si de-viewing duodenoscope was inserted into the oropharynx, then into the esophagus, subsequently into the stomach and then into the duodenum. The ampulla was located in normal location with normal mor phology. In fact, this ampulla appeared rather flat. At this time, cannulation was performed. Ini tially, the pancreatic duct was cannulated, which appeared normal. Subsequently, common bile duct w as also cannulated, which showed evidence of common bile duct filling defect, and this filling defec t was consistent with choledocholithiasis. At this time, the cutting wire of the Perfecttome was used and a sphincterotomy was performed. When the sphincterotomy was performed, about 8 mm cut was made , and following the sphincterotomy cut, the balloon was inserted into the common bile duct and filli ng defects were retrieved at least 1 cm stone was removed. Other small stone was removed and, at th is time, the balloon was removed. The guidewire was left behind. Over the guidewire, a 10 x 7 Amst erdam type of endobiliary prosthesis was inserted into the bile duct across the ampulla into the duo denum. This was all done under fluoroscopic guidance. Subsequently, procedure was terminated. PLAN: Recommend proceeding with a cholecystectomy. Dictated By: CRUZ WATSON/DAMIAN Conf#: [id number] DID#: [id number] CC: CRUZ CLAYTON MD; MEG LEE MD;*[facility]*
--- NOTE | 2016-10-22 18:11 | CONS ---
DATE OF ADMISSION: 10/21/2016 DATE OF CONSULTATION: TYPE OF CONSULTATION: Gastroenterology. Dear Dr. Lee: Thank you for asking me to see Ms. Gale in GI consultation. HISTORY OF PRESENT ILLNESS: The patient, as you know, is a 65-year-old female who has been experiencing epigastric pain for the past couple of days, and hence she came to the emergency room. The pain has been in the upper abdomen, had some nausea, but no vomiting, no GI bleeding. She did have some fever actively in the hospital. Temperature went up from 97.4 to 102.1, respirations 20, blood pressure 97/45. The ultrasound showed gallstones. The MRCP showed evidence of multiple gallstones, as well as a com mon bile duct stone. The patient has no prior history of gastrointestinal problems. PAST MEDICAL HISTORY: Includes hysterectomy. LABORATORY FUNCTIONS: Again includes AST of 24, ALT 22, alkaline phosphatase is 102. ALT was eleva radha at 135 yesterday. REVIEW OF SYSTEMS: Indicates that she has history of asthma. MEDICATIONS PRIOR TO THE ADMISSION: Please review the H and P for details of the medications; alexys nelson, currently, she is on some medications, which include: 1. Benadryl. 2. Piperacillin, tazobactam, which is Zosyn. 3. Hydralazine. 4. Fentanyl. PHYSICAL EXAMINATION: GENERAL: The patient is a 65-year-old female who, at this time, is alert. She is average built. CARDIOVASCULAR: Normal heart sounds. RESPIRATORY: Normal breath sounds. VITAL SIGNS: Temperature as mentioned. ABDOMEN: Showed unremarkable findings. LABORATORY DATA: Rest of the laboratory functions shows white count went up to 20,100 today. The c oagulation is 15.7 on the prothrombin time, INR 1.24. CLINICAL IMPRESSION: 1. The patient has evidence of cholangitis due to choledocholithiasis as noted on MRCP. 2. She also has evidence of acute cholecystitis. 3. History of asthma. PLAN: Recommend ERCP, which is being scheduled. This was discussed with the patient and the patien t's family and they understood the procedure and ERCP will be performed. Once again, I would like to thank you for this consultation. Dictated By: CRUZ WATSON/DAMIAN Conf#: [id number] DID#: [id number] CC: MEG LEE MD; CRUZ CLAYTON MD;*[facility]*
--- NOTE | 2016-10-22 19:19 | RADRPT ---
PROCEDURE: X-ray fluoroscopy guidance CLINICAL INDICATION: Pain TECHNIQUE: Fluoroscopic guidance was utilized for ERCP. COMPARISON: None available FINDINGS: Fluoroscopic guidance was provided. 1 minute, 19 seconds of fluoroscopy time was utilized for the p rocedure. 12 images were obtained during the procedure in progress. IMPRESSION: 1. X-ray fluoroscopic guidance, as above. RPTAT: QQ .Ron Pendleton MD, MD Date Time Electronically viewed and signed by .Ron Pendleton MD, on 10/22/2016 15:30 .R/
[2016-10-22 20:00] VITALS: BP 83/46; RESP 20
[2016-10-22] MEDS ORDERED: SOD CHLORIDE 0.9% 500 ML IV ONE (21:30)
[2016-10-22 22:50] VITALS: BP 103/56; PULSE 68; RESP 16
[2016-10-23] VITALS (16 sets, daily range): BP systolic 90–148; BP diastolic 51–72; PULSE 64–94; RESP 18–27
[2016-10-23] MEDS: NS + KCL 20 MEQ 1,000 ML IV SCH ×2 (01:34→05:00)
[2016-10-23] MEDS: PIPER-TAZO 3.375 GM IV (PMX) 100 ML IVPB SCH (05:20)
[2016-10-23 06:03] LABS: BASOPHILS % 0.1 % (0.0-2.0); EOSINOPHILS # 0.1 10^3/ul (0.0-0.5); EOSINOPHILS % 1.2 % (0.0-7.0); HEMATOCRIT 33.1 % (37.0-47.0); HEMOGLOBIN 10.8 g/dl (12.0-16.0); LYMPHOCYTES # 1.1 10^3/ul (0.8-2.9); MEAN CORPUSCULAR HEMOGLOBIN 28.4 pg (29.0-33.0); MEAN CORPUSCULAR HGB CONC 32.5 g/dl (32.0-37.0); MEAN CORPUSCULAR VOLUME 87.4 fl (82.0-101.0); MEAN PLATELET VOLUME 9.4 fl (7.4-10.4); MONOCYTE # 0.7 10^3/ul (0.3-0.9); MONOCYTES % 6.7 % (0.0-11.0); NEUTROPHIL # 8.3 10^3/ul (1.6-7.5); PLATELET COUNT 128 10^3/UL (140-440); RED BLOOD COUNT 3.78 10^6/ul (4.20-5.40); RED CELL DISTRIBUTION WIDTH 14.7 % (11.5-14.5); UNCORRECTED WBC 10.2 10^3/ul (4.8-10.8); WHITE BLOOD COUNT 10.2 10^3/ul (4.8-10.8)
[2016-10-23 06:10] LABS: CONDITION 1; LH ANALYZER COMMENTS 1
[2016-10-23 06:27] LABS: ALBUMIN 2.5 g/dl (3.3-4.9); PHOSPHORUS 1.9 mg/dl (2.5-4.9)
[2016-10-23 06:28] LABS: MAGNESIUM 2.4 mg/dl (1.7-2.5)
[2016-10-23 06:29] LABS: CREATININE 0.47 mg/dl (0.44-1.00)
[2016-10-23 06:30] LABS: ALBUMIN/GLOBULIN RATIO 0.92; BILIRUBIN,DIRECT 0.2 mg/dl (0.00-0.20); BILIRUBIN,INDIRECT 0.2 mg/dl (0-1.1); BILIRUBIN,TOTAL 0.4 mg/dl (0.2-1.3); CALCIUM 7.6 mg/dl (8.4-10.2); TOTAL PROTEIN 5.2 g/dl (6.1-8.1)
[2016-10-23] MEDS: ALBUTEROL/IPRATROPIUM (NEB) 3 ML AMP HHN SCH ×3 (07:46→19:36)
--- NOTE | 2016-10-23 07:54 | HPN ---
Date/Time of Note Date/Time of Note DATE: 10/23/16 TIME: 07:53 Interval H&P Admission Note Pt. seen H&P reviewed: No system changes Pt. seen H&P reviewed. No system changes (I attest that I have seen and examined the patient and reviewed the operation in detail, as well as its risks , benefits and alternatives of the operation). I attest that I have seen and examined the patient and reviewed in detail the operation, and its associated risks, benefits and alternative. I have answered all the patient's questions to the best of my ability and the patient wishes to proceed. Please refer to rest of electronic medical record for additional updates. ZULEMA POTTER M.D. Oct 23, 2016 07:54
[2016-10-23] MEDS: SALMETEROL/FLUTICASONE 250/50 INHA INH SCH ×2 (08:46→20:37)
[2016-10-23] MEDS: FAMOTIDINE 20 MG INJ IV SCH (08:46)
[2016-10-23] MEDS ORDERED: BUPIVACAINE 0.25%/EPI (SDV) 30 ML INJ ONE (09:38)
[2016-10-23] MEDS ORDERED: MIDAZOLAM 1 MG/ML 2 ML INJ ONE (09:56)
[2016-10-23] MEDS ORDERED: ONDANSETRON 4 MG INJ IV PRN (10:00)
[2016-10-23] MEDS ORDERED: morphine (1 MG/ML) 10ML SYRINGE IV PRN (10:00)
[2016-10-23] MEDS ORDERED: MEPERIDINE 25 MG INJ IV PRN (10:00)
[2016-10-23] MEDS ORDERED: DIPHENHYDRAMINE 50 MG INJ IV PRN (10:00)
[2016-10-23] MEDS ORDERED: FENTAnyl 50 MCG/ML VIAL IV PRN (10:00)
[2016-10-23] MEDS ORDERED: LIDOCAINE 2% (SDV) 5 ML INJ ONE (11:24)
[2016-10-23] MEDS ORDERED: ETOMIDATE 20 MG INJ ONE (11:24)
[2016-10-23] MEDS ORDERED: ROCURONIUM 50 MG INJ ONE (11:24)
[2016-10-23] MEDS ORDERED: ONDANSETRON 4 MG INJ ONE (11:24)
[2016-10-23] MEDS ORDERED: GLYCOPYRROLATE 0.4 MG INJ ONE (11:33)
[2016-10-23] MEDS ORDERED: NEOSTIGMINE 3 MG/3 ML SYRINGE ONE (11:33)
--- NOTE | 2016-10-23 11:53 | PN ---
Date/Time of Note Date/Time of Note DATE: 10/23/16 TIME: 11:49 Assessment/Plan VTE Prophylaxis VTE Prophylaxis Intervention: SCD's Lines/Catheters IV Catheter Type (from [facility]): Peripheral IV Urinary Cath still in place: No Assessment/Plan Chief Complaint/Hosp Course Assessment and plan 1. Cholelithiasis with cholecystitis. Patient for laparoscopic cholecystectomy. Continue antibiotics. Continue with analgesics. We'll follow-up. 2. Choledocholithiasis. Patient status post ERCP with stone removal. Monitor LFT. Continue IV hydration. 3. Diverticulitis. Noted CT scan showing evidence of descending colon diverticulitis. npo for now. Continue antibiotics. 4. Sirs like secondary to cholecystitis/choledocholithiasis/cholelithiasis and diverticulitis. On antibiotics. Continue IV hydration. 5. COPD. Continue on bronchodilators 6. Hypokalemia. We'll monitor and replete as needed 7. Dyslipidemia. Patient to be resumed on statin medication was able to tolerate oral intake 8. Prediabetes. Continue carbohydrate controlled diet. Of note A1c of 6.1. 9. Vaginal prolapse. Patient did have ultrasound showing absent uterus and ovaries no evidence of adnexal mass. Patient follow-up with palliative surgeon as outpatient DT prophylaxis: SCDs GERD prophylaxis: H2 manuel Disposition and plan: Patient s/p laparoscopic cholecystectomy. Follow-up with postop care. Discussed plan of care with Dr. Jacinto Problems: Subjective 24 Hr Interval Summary Free Text/Dictation patient for laparoscopic cholecystectomy Exam/Review of Systems Vital Signs Vitals Vital Signs Date Time Temp Pulse Resp B/P Pulse Ox O2 Delivery O2 Flow Rate FiO2 10/23/16 08:49 Nasal Cannula 2.0 10/23/16 07:20 98.9 67 18 118/58 97 10/21/16 14:50 21 Intake and Output 10/22/16 10/22/16 10/23/16 15:00 23:00 07:00 Intake Total 150 ml 1215 ml 1460 ml Output Total 200 ml Balance 150 ml 1215 ml 1260 ml Exam patient for laparoscopic cholecystectomy Results Result Diagram: 10/23/16 0512 10/23/16 0512 Results 24 hrs Laboratory Tests Test 10/22/16 11:58 10/23/16 05:12 Lactic Acid Level 1.9 1.0 Alanine Aminotransferase (ALT/SGPT) 38 Albumin 2.5 L Albumin/Globulin Ratio 0.92 Alkaline Phosphatase 140 H Anion Gap 13 Aspartate Amino Transf (AST/SGOT) 47 H Basophils # 0.0 Basophils % 0.1 Blood Morphology Comment Blood Urea Nitrogen 14 Calcium Level 7.6 L Carbon Dioxide Level 27 Chloride Level 109 Creatinine 0.47 Direct Bilirubin 0.20 # Eosinophils # 0.1 Eosinophils % 1.2 Globulin 2.70 Glucose Level 109 # Hematocrit 33.1 L Hemoglobin 10.8 L Indirect Bilirubin 0.2 Lymphocytes # 1.1 Lymphocytes % 11.0 L Magnesium Level 2.4 Mean Corpuscular Hemoglobin 28.4 L Mean Corpuscular Hemoglobin Concent 32.5 Mean Corpuscular Volume 87.4 Mean Platelet Volume 9.4 Monocytes # 0.7 Monocytes % 6.7 Neutrophils # 8.3 H Neutrophils % 81.0 H Nucleated Red Blood Cells # 0.0 Nucleated Red Blood Cells % 0.0 Phosphorus Level 1.9 #L Platelet Count 128 #L Potassium Level 4.0 Red Blood Count 3.78 L Red Cell Distribution Width 14.7 H Sodium Level 145 H Total Bilirubin 0.4 Total Protein 5.2 #L White Blood Count 10.2 # Medications Medications Current Medications Ondansetron HCl (Zofran Inj) 4 mg Q6H PRN IV NAUSEA AND/OR VOMITING; Start at 11:30 Acetaminophen (Tylenol Supp) 650 mg Q6H PRN SC PAIN LEVEL 1-3 OR FEVER Last administered on 10/22/16 08:21; Admin Dose 650 MG; Start 10/21/16 at 11:30 Morphine Sulfate (morphine) 2 mg Q4H PRN IV SEVERE PAIN LEVEL 7-10 Last administered on 10/21/16at 13:01; Admin Dose 2 MG; Start 10/21/16 at 11:30 Famotidine (Pepcid Iv) 20 mg DAILY IV Last administered on 10/22/16 08:21; Admin Dose 20 MG; Start 10/21/16 at 21:00 Salmeterol Xinafoate/ Fluticasone (Advair 250/50 Diskus) 1 inh BID INH Last administered on 10/22/16 21:23; Admin Dose 1 INH; Start 10/21/16 at 21:00 Hydralazine HCl 10 mg 10 mg Q6H PRN IV SBP>160; Start 10/21/16 at 13:00 Potassium Chloride/Dextrose/ Sod Cl (D5-1/2ns + KCl 20 Meq) 1,000 ml @ 100 mls/ hr Q10H IV ; Start 10/23/16 at 11:36 Acetaminophen/ Hydrocodone Bitart ([place] (5/325)) 1 tab Q4H PRN PO PAIN LEVEL 4 -7; Start 10/23/16 at 12:00 Acetaminophen/ Hydrocodone Bitart ([place] (5/325)) 2 tab Q4H PRN PO PAIN LEVEL 7 -10; Start 10/23/16 at 12:00 Hydromorphone HCl (Dilaudid) 0.5 mg Q2 PRN IV PAIN; Start 10/23/16 at 12:00 Hydromorphone HCl (Dilaudid) 1 mg Q2 PRN IV PAIN; Start 10/23/16 at 12:00 Docusate Sodium (Colace) 100 mg BID PRN PO CONSTIPATION; Start 10/23/16 at 12:00 Bisacodyl (Dulcolax Supp) 10 mg BID PRN SC CONSTIPATION; Start 10/23/16 at 12:00 Sodium Biphosphate/ Sodium Phosphate (Fleet Enema) 133 ml BID PRN SC CONSTIPATION; Start 10/23/16 at 12:00 Enoxaparin Sodium (Lovenox) 40 mg DAILY SC ; Start 10/24/16 at 09:00 JOSE PETERSEN Oct 23, 2016 11:53
[2016-10-23] MEDS ORDERED: NA PHOSPHATE/BIPHOS 133 ML ENEMA PR PRN (12:00)
[2016-10-23] MEDS ORDERED: BISACODYL 10 MG SUPP PR PRN (12:00)
[2016-10-23] MEDS ORDERED: DOCUSATE SODIUM 100 MG CAP PO PRN (12:00)
[2016-10-23] MEDS ORDERED: HYDROmorphONE 1 MG/ML SYG IV PRN ×2 (12:00)
--- NOTE | 2016-10-23 12:00 | OPR ---
Date/Time of Note Date/Time of Note DATE: 10/23/16 TIME: 11:58 Operative Report Operative Findings [facility] INPATIENT OPERATIVE NOTE PLACE OF SERVICE: [facility] DATE OF SURGERY: 10/23/2016 PREOPERATIVE DIAGNOSIS: 1. Choledocholithiasis, status post ERCP and removal of one stone from common bile duct 10/22/2016 2. Acute cholecystitis 3. Asthma 4. Hyperlipidemia POSTOPERATIVE DIAGNOSIS: 1. Choledocholithiasis, status post ERCP and removal of one stone from common bile duct 10/22/2016 2. Acute cholecystitis 3. Asthma 4. Hyperlipidemia OPERATION: 1. Laparoscopic cholecystectomy SURGEON: Zulema Matthews M.D. NUTRITION ASSISTANT: None ANESTHESIA: General endotracheal tube anesthesia ANESTHESIOLOGIST: Vicetne Bucio M.D. BRIEF SUMMARY: A somewhat challenging but otherwise uncomplicated laparoscopic cholecystectomy was performed with findings of acute cholecystitis. BRIEF HISTORY: The patient is a very pleasant 65-year-old lady with comorbid issues of history of asthma and hyperlipidemia presenting with biliary colic and possible early acute cholecystitis. Elevated alkaline phosphatase. MRCP showed possible stone within common bile duct. Status post ERCP 2016 with sphincterotomy, removal of one stone, and placement of A 10 x 7 [place] type of endobiliary prosthesis. I met with the patient and family and counseled them regarding the possible options of treatment, and I strongly suggested a laparoscopic, possible open cholecystectomy. We reviewed the operation in detail as well as the risks, benefits, alternatives, and expected outcomes of this operation. After careful consideration of all the risks, benefits, and alternatives, the patient and family appeared to understand those risks and wished to proceed with surgery. For a detailed report of my consultation with patient and family, please refer to my separate consultation note. STATEMENT OF THE INFORMED CONSENT: The patient and family appeared to understand the risks of the operation to include, but not be limited to risk of postoperative pain and scar tissue, possible infection or bleeding requiring other interventions such as opening the wound, placement of drainage catheters, or other operative interventions; possible injury to surrounding to structures including bowel, bladder, bile duct, or blood vessels, or solid organs such as liver, kidney, or pancreas requiring other interventions or procedures; possible leakage of bile from surgical clip sites, suture lines, or worse, from common bile duct injury, causing significant increase in morbidity and mortality and requiring multiple interventions including but not limited to, placement of drainage catheters, imaging studies, as well as operative interventions; possible other source of sepsis such as urinary tract infections or pneumonias, or other sources of potentially life threatening problems such as deep venous thrombus formation causing pulmonary embolism, myocardial arrhythmias and infarctions, and even . We also briefly discussed the potential need to receive blood products and their potential complications of blood transfusion reactions, transmission of infections, or other complications. After careful consideration of all their options, the patient and family appeared to understand and wished to proceed with surgery. DESCRIPTION OF PROCEDURE: After obtaining informed consent, the patient was brought into the operating room and was placed in a normal supine position, where successful general endotracheal tube anesthesia was performed. The patient 's abdominal skin was prepped and draped, from the nipple line down to the level of the groins, in the usual sterile fashion. Intravenous access was already in place, and appropriately chosen and dosed prophylactic intravenous antimicrobials were administered. We then called a surgical time-out where patient's identification, date of , nature of the operation, allergies, presence of intravenous antimicrobials, presence of needed equipment, and any other concerns were reviewed and agreed upon by all members of the operating room team. We then started the operation by placing a 5-mm skin incision in the right- upper quadrant, subcostal midclavicular line, and introduced a 5-mm [employer] trocar into the peritoneal space, visualizing all the layers of the abdominal wall as we entered. Note that there was no indication of any injury to underlying structures once we entered the peritoneum. We insufflated the abdominal cavity to a maximum pressure of 15 mmHg, again, confirmed lack of any injury to underlying structures prior to visualizing the rest of the abdominal cavity. We found the fundus of the gallbladder to be visible. Gallbladder appeared to be significantly distended. There was no evidence of malignancy. No evidence of calcifications or significant issues with adhesions, or other abnormalities. The liver appeared to be healthy. With this information, we went a head and placed the other trocars under direct visualization, after injecting their sites with 0.25% Marcaine with epinephrine , placing a 5-mm trocar in the umbilical midline area, a 5-mm trocar in the right anterior axillary line, and a 12-mm trocar in the midline subxiphoid region. With our instruments in place, we had excellent visualization and access to the right-upper quadrant. We then we grasped the fundus of the gallbladder and pointed up towards the right-upper quadrant. There was significant omental adhesions onto the infundibulum which we took down with judicious use of cautery, as well as meticulous blunt dissection. We then emptied the gallbladder with the use of a laparoscopic needle and removed purulent appearing brownish fluid from the gallbladder. We were then able to grasp the infundibulum and pull it out in order to expose the critical triangle of Calot. We then placed our usual serosal cuts along the long axis of the gallbladder 1 cm away from its attachment to the liver bed up towards the fundus, and then joined these 2 lines under the infundibulum, taking care not to deliver any energy to underlying structures. To maximize a degree of safety of the operation, we took the gallbladder top down using cautery. We also use a Ray-Yahir and the abdominal cavity during part of the procedure in order to assist with pushing the liver up and gaining exposure. We then performed meticulous dissection to identify and circumferentially isolate both the cystic duct and cystic artery, prior to transecting them between 2 surgical Endoclips, proximally and one distally on the cystic artery transecting IT using cold scissors, and a 30 mm vascular ( white) load of the Endo GABBIE stapler on the cystic duct due to the size of the duct, and only after making sure that these were the only 2 structures going into the gallbladder. We then shaved the gallbladder off the gallbladder bed using cautery, and then delivered it out inside of an EndoCatch bag through the 12-mm trocar site with enlarging the fascia and without contaminating the wound. The gallbladder was sent to Pathology for evaluation. Returning to the abdominal cavity, we ensured that there was adequate hemostasis and bile-stasis prior to removal of all of or equipment, including the Ray-Yahir and the pneumoperitoneum, and then reapproximating the 12-mm trocar site with [id number] Vicryl sutures, followed by washing the wounds with copious amounts of normal saline, and then reapproximating the skin using interrupted 4-0 Monocryl sutures. Light dressing was then applied. At the end of the operation, both the sponge count and needle count were reportedly correct x2. The patient tolerated the procedure without any reported complications. ESTIMATED BLOOD LOSS: 40 mL BLOOD OR BLOOD PRODUCT TRANSFUSIONS: None to my knowledge. SPECIMENS: 1. Gallbladder COMPLICATIONS: None. DISPOSITION: Recovery area. Disclaimer: Inadvertent spelling and grammatical errors are likely due to EHR/ dictation software use and do not reflect on the quality of delivered patient care. ZULEMA MATTHEWS M.D. Oct 23, 2016 11:59
[2016-10-23] MEDS: D5W-0.45 NACL + KCL 20 MEQ 1,000 ML IV SCH ×2 (13:08→21:36)
[2016-10-23] MEDS: HYDROCODONE/APAP (5/325) TAB PO PRN (17:29)
[2016-10-24 00:15] VITALS: BP 102/55; PULSE 79; RESP 20
[2016-10-24] MEDS: HYDROCODONE/APAP (5/325) TAB PO PRN ×3 (00:21→23:09)
[2016-10-24] MEDS: D5W-0.45 NACL + KCL 20 MEQ 1,000 ML IV SCH ×2 (00:24→07:36)
[2016-10-24 06:02] LABS: BASOPHILS % 0.1 % (0.0-2.0); EOSINOPHILS # 0.2 10^3/ul (0.0-0.5); EOSINOPHILS % 3.2 % (0.0-7.0); HEMATOCRIT 29.4 % (37.0-47.0); HEMOGLOBIN 9.8 g/dl (12.0-16.0); LYMPHOCYTES # 1.3 10^3/ul (0.8-2.9); LYMPHOCYTES % 16.9 % (15.0-51.0); MEAN CORPUSCULAR HEMOGLOBIN 28.9 pg (29.0-33.0); MEAN CORPUSCULAR HGB CONC 33.3 g/dl (32.0-37.0); MEAN CORPUSCULAR VOLUME 86.8 fl (82.0-101.0); MEAN PLATELET VOLUME 9.5 fl (7.4-10.4); MONOCYTE # 0.7 10^3/ul (0.3-0.9); MONOCYTES % 9.3 % (0.0-11.0); NEUTROPHIL # 5.5 10^3/ul (1.6-7.5); NEUTROPHILS % 70.5 % (39.0-77.0); PLATELET COUNT 120 10^3/UL (140-440); RED BLOOD COUNT 3.39 10^6/ul (4.20-5.40); RED CELL DISTRIBUTION WIDTH 14.1 % (11.5-14.5); UNCORRECTED WBC 7.8 10^3/ul (4.8-10.8); WHITE BLOOD COUNT 7.8 10^3/ul (4.8-10.8)
[2016-10-24 06:03] LABS: INR 1.22; PROTIME 15.5 Sec (12.2-14.2); PT RATIO 1.2
[2016-10-24 06:04] LABS: PARTIAL THROMBOPLASTIN TIME 32.7 Sec (25.0-35.0)
[2016-10-24 06:06] LABS: CONDITION 1
[2016-10-24 06:13] LABS: ALBUMIN 2.5 g/dl (3.3-4.9); POTASSIUM 3.3 mmol/L (3.5-5.1)
[2016-10-24 06:15] LABS: BILIRUBIN,INDIRECT 0.3 mg/dl (0-1.1); BILIRUBIN,TOTAL 0.3 mg/dl (0.2-1.3); CREATININE 0.43 mg/dl (0.44-1.00)
[2016-10-24 06:16] LABS: ALBUMIN/GLOBULIN RATIO 0.83; CALCIUM 7.3 mg/dl (8.4-10.2); PHOSPHORUS 2.3 mg/dl (2.5-4.9); TOTAL PROTEIN 5.5 g/dl (6.1-8.1)
[2016-10-24 06:17] LABS: MAGNESIUM 1.8 mg/dl (1.7-2.5)
[2016-10-24 07:08] VITALS: BP 91/52; RESP 18
[2016-10-24] MEDS: FAMOTIDINE 20 MG INJ IV SCH (08:29)
[2016-10-24] MEDS: ENOXAPARIN 40 MG/0.4 ML SYG SC SCH (08:38)
[2016-10-24] MEDS ORDERED: METR500T PO (08:46)
[2016-10-24] MEDS ORDERED: ADV25050 INH (08:46)
[2016-10-24] MEDS ORDERED: CIPR500T4 PO (08:46)
[2016-10-24] MEDS ORDERED: HYDR-3498 PO (08:46)
[2016-10-24] MEDS ORDERED: ALBU8.5H3 INH (08:46)
--- NOTE | 2016-10-24 08:52 | PDOCDIS ---
Discharge Instructions DIAGNOSIS Discharge Diagnosis: 1. Cholelithiasis with cholecystitis 2. Choledocholithiasis 3. Diverticulit CONDITION Patient Condition: Stable HOME CARE INSTRUCTIONS: Diet Instructions: Regular FOLLOW UP/APPOINTMENTS Appointments 1. Follow up with Dr. Jamie Matthews in one week 2. Follow up with your primary care provider in 1-2 weeks OTHER ORDERS: Other Orders: 1. Call your primary care provider if you have worsening abdominal pain/nausea/ vomiting Please call [phone] if any of fever, nausea, vomiting, discharge from wound , wound redness, increase or sudden pain, blood in stool or vomit, or any other unusual signs or symptoms. Also, please call the same number in a few days to schedule an appointment for your follow up visit with Dr. Jamie Matthews. Patient may remove dressings tomorrow. Showers OK starting tomorrow. No swimming , hot tub or bath for 2 weeks. No lifting more than 25 lbs for 8 weeks JOSE PETERSEN Oct 24, 2016 08:52
[2016-10-24] MEDS: SALMETEROL/FLUTICASONE 250/50 INHA INH SCH ×2 (10:36→20:46)
[2016-10-24] MEDS ORDERED: POTASSIUM PHOSPHATE 20 MEQ in SOD CHLORIDE 0.9% 250 ML IVPB SCH (11:00)
--- NOTE | 2016-10-24 11:17 | PN ---
Date/Time of Note Date/Time of Note DATE: 10/24/16 TIME: 11:12 Assessment/Plan Lines/Catheters IV Catheter Type (from [facility]): Peripheral IV Klein in Place (from [facility]): No Assessment/Plan Assessment/Plan [facility] In[facility] Progress Note Date of Service: 10/24/16 Today's Assessment & Plan: Overall stable and improving without any obvious evidence of major postoperative complication. Abdomen remains benign. Would be okay from my standpoint for patient to discharge home if okay by other physicians and providers. With above assessment, I've recommended the following for today: 1. Continue current cares 2. Discharge home when medically stable 3. Please include the following in the patient's discharge instructions: "Please call [phone] if any of fever, nausea, vomiting, discharge from wound, wound redness, increase or sudden pain, blood in stool or vomit, or any other unusual signs or symptoms. Also, please call the same number in a few days to schedule an appointment for your follow up visit. Patient may remove dressings tomorrow. Showers OK starting tomorrow. No swimming , hot tub or bath for 2 weeks. No lifting more than 25 lbs for 8 weeks." Thank you again for your great care of this very pleasant lady and her wonderful family. If there are any questions, please feel free to call me at [phone]. TOTAL VISIT TIME: 20 minutes of which more than half was spent in [id number] discussion with the patient as well as coordination of care between multiple physicians and providers. Disclaimer: Inadvertent spelling and grammatical errors are likely due to EHR/ dictation software use and do not reflect on the quality of delivered patient care. Also, please note that the electronic time recorded on this node does not necessarily reflect the actual time of the visit. Updated Clinical Summary: The patient is a very pleasant 65-year-old lady with comorbid issues of history of asthma and hyperlipidemia presenting with biliary colic and possible early acute cholecystitis. Elevated alkaline phosphatase. MRCP 10/21/2017 showed possible stone within common bile duct. Status post ERCP 10/22/2016 with sphincterotomy, removal of one stone, and placement of A 10 x 7 [place] type of endobiliary prosthesis. S/p a somewhat challenging but otherwise uncomplicated laparoscopic cholecystectomy was performed with findings of acute cholecystitis on 10/23/16. Past and present comorbidities list: 1. Choledocholithiasis, status post ERCP and removal of one stone from common bile duct 10/22/2016; status post laparoscopic cholecystectomy 10/23/2016 2. Acute cholecystitis 3. Asthma 4. Hyperlipidemia Subjective: No major events or complaints; no major pain complaints and reportedly under control with medications; no n/v/d; no sob or cp; - flatus; - BM; - activity Objective: Vitals: See below I's & O's: See below Exam: GENERAL: On exam, the patient was lying in bed and appeared to be comfortable and in no acute distress. ABDOMEN: Soft, nontender and nondistended. There are no peritoneal signs or guarding. Incision dressings c/d/i w/o obvious underlying e/e/d/h. SKIN: Skin appears to be pink and feels warm to touch. NEUROLOGIC: Patient is awake, alert, and follows commands appropriately. Labs: See below Exam/Review of Systems Vital Signs Vitals Vital Signs Date Time Temp Pulse Resp B/P Pulse Ox O2 Delivery O2 Flow Rate FiO2 10/24/16 07:08 98.3 50 18 91/52 96 10/24/16 00:15 Nasal Cannula 2.0 10/21/16 14:50 21 Intake and Output 10/23/16 10/23/16 10/24/16 15:00 23:00 07:00 Intake Total 760 ml 900 ml 1500 ml Output Total 20 ml 600 ml Balance 740 ml 900 ml 900 ml Results Result Diagram: 10/24/16 0454 10/24/16 0454 ZULEMA POTTER M.D. Oct 24, 2016 11:17
--- NOTE | 2016-10-24 14:50 | RADRPT ---
Echocardiogram Report Patient Name: STU CARRANZA Gender: Female Date: 1950 Study Date: 24-Oct-2016 Parachute Mender: Destiny Lopez [facility] Location: [id number] Ref. Physician: JOSE PETERSEN Quality: Good Procedures: Transthoracic echocardiogram with complete 2D, M-Mode, and doppler examination. Indications: Congestive Heart Failure. 2D/M Mode Doppler Measurement Value Normal Ranges Measurement Value Normal Ranges LVIDd 2D 3.9 3.5 - 5.6 cm AV Peak Vj 1.8 m/sec LVIDs 2D 3.6 2.1 - 4.1 cm AV Peak PG 13.5 mmHg LVPWd 2D 0.7 0.6 - 1.1 cm LVOT Peak Vj 1.1 m/sec IVSd 2D 0.8 0.6 - 1.1 cm LVOT Peak PG 5.2 mmHg AoR Diam 2D 2.2 2.0 - 3.7 cm MV E Peak Vj 0.8 m/sec EDV 2D 64.2 cm3 MV A Peak Vj 1.1 m/sec ESV 2D 45.7 cm3 MV E/A 0.7 LA Dimen 2D 3.6 2.3 - 4.0 cm MV Decel Time 147 msec MV Decel [place] 5 MV E/A 0.7 TR Peak Vj 4.0 m/sec TR Peak PG 63.1 mmHg RVSP 78.1 mmHg Findings Left Ventricle: Normal left ventricular systolic function. Normal left ventricular cavity size. Normal left ventricular wall thickness. Ejection fraction is visually estimated at 55 %. Tissue Doppler/Mitral Doppler indices are consistent with impaired relaxation (Stage I diastolic dysfunction). Right Ventricle: Mild enlargement of right ventricle. Mild right ventricular hypokinesis. Left Atrium: The left atrium is normal in size. Right Atrium: There is mild enlargement of right atrium. Mitral Valve: Mitral valve leaflets appear mildly thickened. Mild mitral annular calcification. Trace mitral regurgitation. Aortic Valve: Normal appearance of the aortic valve. No significant aortic stenosis or insufficiency. Tricuspid Valve: Estimated peak PA systolic pressure 78 mmHg. There is moderate to severe tricuspid regurgitation. Pericardium: Normal pericardium with no significant pericardial effusion. Aorta: Normal aortic root. IVC: Dilated IVC without respiratory collapse consistent with elevated right atrial pressure. Conclusions 1.Normal left ventricular systolic function. Normal left ventricular cavity size. Normal left ventricular wall thickness. Ejection fraction is visually estimated at 55 %. Tissue Doppler/Mitral Doppler indices are consistent with impaired relaxation (Stage I diastolic dysfunction). 2.Mild enlargement of right ventricle. Mild right ventricular hypokinesis. Evidence of RV pressure/volume overload. 3.Moderate to severe tricuspid regurgitation. 4.Severe pulmonary hypertension. Estimated peak PA systolic pressure 78 mmHg based on RA pressure of 15 mmHg. Electronically Signed By: Sreedhar Reyes 24-Oct-2016 14:49:34 -0800 Patient Name: STU CARRANZA Study Date: 24-Oct-2016 [id number]
--- NOTE | 2016-10-24 16:24 | PN ---
Date/Time of Note Date/Time of Note DATE: 10/24/16 TIME: 16:22 Assessment/Plan VTE Prophylaxis VTE Prophylaxis Intervention: SCD's Lines/Catheters IV Catheter Type (from [facility]): Peripheral IV Urinary Cath still in place: No Assessment/Plan Chief Complaint/Hosp Course Assessment and plan 1. Cholelithiasis with cholecystitis. Patient is status post laparoscopic cholecystectomy. . Continue with analgesics. 2. Choledocholithiasis. Patient status post ERCP with stone removal. Monitor LFT. Continue IV hydration. 3. Diverticulitis. Noted CT scan showing evidence of descending colon diverticulitis. npo for now. Continue antibiotics. 4. Sirs like secondary to cholecystitis/choledocholithiasis/cholelithiasis and diverticulitis. On antibiotics. Continue IV hydration. 5. COPD. Continue on bronchodilators 6. Hypokalemia. We'll monitor and replete as needed 7. Dyslipidemia. Patient to be resumed on statin medication was able to tolerate oral intake 8. Prediabetes. Continue carbohydrate controlled diet. Of note A1c of 6.1. 9. Vaginal prolapse. Patient did have ultrasound showing absent uterus and ovaries no evidence of adnexal mass. Patient follow-up with palliative surgeon as outpatient 10. Elevated BNP. Patient was ordered echocardiogram. Per echo patient did have RVSP of 78. We'll get boat loader to follow for pulmonary hypertension. We'll get PFT 11. Pulmonary hypertension. Rock Contractor consulted. We'll get PFT. We'll check CTA for possible chronic pulmonary emboli DvT prophylaxis: SCDs GERD prophylaxis: H2 manuel Disposition and plan: We'll get PFT. CTA to check for chronic pulmonary emboli. Rock Contractor consulted. Discussed plan of care with Problems: Subjective 24 Hr Interval Summary Free Text/Dictation Resting bed. Denies any shortness of breath time. Does report some mild abdominal discomfort. No other specific complaints Exam/Review of Systems Vital Signs Vitals Vital Signs Date Time Temp Pulse Resp B/P Pulse Ox O2 Delivery O2 Flow Rate FiO2 10/24/16 11:35 Nasal Cannula 2.0 10/24/16 07:08 98.3 50 18 91/52 96 10/21/16 14:50 21 Intake and Output 10/23/16 10/23/16 10/24/16 15:00 23:00 07:00 Intake Total 760 ml 900 ml 1500 ml Output Total 20 ml 600 ml Balance 740 ml 900 ml 900 ml Exam General: No acute signs or symptoms of distress Eyes: pupils equal round, Anicteric sclera Neck: Supple nontender, no JVD Cardiac: S1, S2 auscultated, regular rhythm and rate Pulmonary: No coarse rhonchi or breathing auscultated GI: Minimally tender on palpation Extremities: No edema bilateral lower extremities Skin: Surgical site clean dry and intact Neurologic: Alert to person place and time and situation Results Result Diagram: 10/24/16 0454 10/24/16 0454 Results 24 hrs Laboratory Tests Test 10/24/16 04:54 Activated Partial Thromboplast Time 32.7 Alanine Aminotransferase (ALT/SGPT) 63 Albumin 2.5 L Albumin/Globulin Ratio 0.83 Alkaline Phosphatase 194 H Anion Gap 10 Aspartate Amino Transf (AST/SGOT) 95 H B-Type Natriuretic Peptide 2140 H Basophils # 0.0 Basophils % 0.1 Blood Morphology Comment Blood Urea Nitrogen 6 L Calcium Level 7.3 L Carbon Dioxide Level 30 Chloride Level 103 Creatinine 0.43 L Direct Bilirubin 0.00 # Eosinophils # 0.2 Eosinophils % 3.2 Globulin 3.00 Glucose Level 169 Hematocrit 29.4 L Hemoglobin 9.8 L INR International Normalized Ratio 1.22 Indirect Bilirubin 0.3 Lactic Acid Level 1.1 Lipase 76 Lymphocytes # 1.3 Lymphocytes % 16.9 Magnesium Level 1.8 Mean Corpuscular Hemoglobin 28.9 L Mean Corpuscular Hemoglobin Concent 33.3 Mean Corpuscular Volume 86.8 Mean Platelet Volume 9.5 Monocytes # 0.7 Monocytes % 9.3 Neutrophils # 5.5 Neutrophils % 70.5 Nucleated Red Blood Cells # 0.0 Nucleated Red Blood Cells % 0.0 Phosphorus Level 2.3 L Platelet Count 120 L Potassium Level 3.3 L Prothrombin Time 15.5 H Prothrombin Time Ratio 1.2 Red Blood Count 3.39 L Red Cell Distribution Width 14.1 Sodium Level 140 Total Bilirubin 0.3 Total Protein 5.5 L White Blood Count 7.8 # Medications Medications Current Medications Ondansetron HCl (Zofran Inj) 4 mg Q6H PRN IV NAUSEA AND/OR VOMITING; Start at 11:30 Acetaminophen (Tylenol Supp) 650 mg Q6H PRN [place] PAIN LEVEL 1-3 OR FEVER Last administered on 10/22/16 08:21; Admin Dose 650 MG; Start 10/21/16 at 11:30 Morphine Sulfate (morphine) 2 mg Q4H PRN IV SEVERE PAIN LEVEL 7-10 Last administered on 10/21/16at 13:01; Admin Dose 2 MG; Start 10/21/16 at 11:30 Famotidine (Pepcid Iv) 20 mg DAILY IV Last administered on 10/24/16 08:29; Admin Dose 20 MG; Start 10/21/16 at 21:00 Salmeterol Xinafoate/ Fluticasone (Advair 250/50 Diskus) 1 inh BID INH Last administered on 10/24/16 10:36; Admin Dose 1 INH; Start 10/21/16 at 21:00 Hydralazine HCl 10 mg 10 mg Q6H PRN IV SBP>160; Start 10/21/16 at 13:00 Potassium Chloride/Dextrose/ Sod Cl (D5-1/2ns + KCl 20 Meq) 1,000 ml @ 100 mls/ hr Q10H IV Last administered on 10/24/16 00:24; Admin Dose 100 MLS/HR; Start at 11:36 Acetaminophen/ Hydrocodone Bitart ([place] (5/325)) 1 tab Q4H PRN PO PAIN LEVEL 4 -7 Last administered on 10/24/16 15:09; Admin Dose 1 TAB; Start 10/23/16 at 12:00 Acetaminophen/ Hydrocodone Bitart ([place] (5/325)) 2 tab Q4H PRN PO PAIN LEVEL 7 -10 Last administered on 10/24/16 00:21; Admin Dose 2 TAB; Start 10/23/16 at 12: 00 Hydromorphone HCl (Dilaudid) 0.5 mg Q2 PRN IV PAIN; Start 10/23/16 at 12:00 Hydromorphone HCl (Dilaudid) 1 mg Q2 PRN IV PAIN; Start 10/23/16 at 12:00 Docusate Sodium (Colace) 100 mg BID PRN PO CONSTIPATION; Start 10/23/16 at 12:00 Bisacodyl (Dulcolax Supp) 10 mg BID PRN [place] CONSTIPATION; Start 10/23/16 at 12:00 Sodium Biphosphate/ Sodium Phosphate (Fleet Enema) 133 ml BID PRN [place] CONSTIPATION; Start 10/23/16 at 12:00 Enoxaparin Sodium (Lovenox) 40 mg DAILY SC Last administered on 10/24/16 08:38 ; Admin Dose 40 MG; Start 10/24/16 at 09:00 JOSE PETERSEN Oct 24, 2016 16:24
[2016-10-24] MEDS ORDERED: IOHEXOL 100 ML ONE (18:42)
[2016-10-24] MEDS ORDERED: SOD CHLORIDE 0.9% 100 ML ONE (18:42)
[2016-10-24 20:00] VITALS: BP 132/68; RESP 18
[2016-10-24] MEDS: ALBUTEROL/IPRATROPIUM (NEB) 3 ML AMP HHN SCH (20:00)
--- NOTE | 2016-10-24 21:19 | RADRPT ---
PROCEDURE: CTA Chest. CLINICAL INDICATION: Pain. Evaluate for pulmonary embolism. TECHNIQUE: Multiple contiguous axial CT images of the chest were obtained following the administra tion of 95 cc of Omnipaque-300 the intravenous contrast. Coronal, sagittal and 3-D reconstructions were also obtained. CTDIvol(mGy): 8.45, 6.52; Total Exam DLP (mGy-cm): 231.37. One or more of the following dose reduction techniques were utilized: - Automated exposure control. - Adjustment of the mA and/or kV according to patient size. - Use of iterative reconstruction technique. COMPARISON: None. FINDINGS: Limited imaging of the lower neck is unremarkable. The heart is not enlarged. There is no pericardial effusion. There is no mediastinal, hilar or axi llary lymphadenopathy. The thoracic aorta is normal in caliber with atherosclerotic calcification. The pulmonary arteries are not enlarged. There are no central filling defects to suggest the prese nce of acute pulmonary embolism. Low lung volumes are present. Small layering pleural effusions are seen bilaterally. Basilar subse gmental atelectasis is seen bilaterally. Limited imaging of the upper abdomen demonstrates evidence of cholecystectomy. An internal biliary stent is partially visualized. Mild pneumobilia is present. Scattered pockets of air are seen within the deep soft tissues of the right lower chest and likely p ostoperative in nature. Skeletal structures are unremarkable. IMPRESSION: No evidence of acute pulmonary embolism. Hypoinflation with small bilateral pleural effusions and basilar subsegmental atelectasis. Surgical changes compatible with cholecystectomy. An internal biliary stent is partially visualized . RPTAT: HLST .Abril Small MD, Date Time Electronically viewed and signed by .Abril Small MD, MD on 10/24/2016 21:19 .T/
[2016-10-25 04:41] VITALS: BP 125/59; RESP 18
[2016-10-25 06:18] LABS: BASOPHILS % 0.5 % (0.0-2.0); EOSINOPHILS # 0.2 10^3/ul (0.0-0.5); EOSINOPHILS % 3.2 % (0.0-7.0); HEMOGLOBIN 9.9 g/dl (12.0-16.0); LYMPHOCYTES # 1.4 10^3/ul (0.8-2.9); LYMPHOCYTES % 21.9 % (15.0-51.0); MEAN CORPUSCULAR HEMOGLOBIN 28.2 pg (29.0-33.0); MEAN CORPUSCULAR HGB CONC 32.8 g/dl (32.0-37.0); MEAN PLATELET VOLUME 9.4 fl (7.4-10.4); MONOCYTE # 0.6 10^3/ul (0.3-0.9); MONOCYTES % 9.8 % (0.0-11.0); NEUTROPHIL # 4.1 10^3/ul (1.6-7.5); NEUTROPHILS % 64.6 % (39.0-77.0); PLATELET COUNT 152 10^3/UL (140-440); RED BLOOD COUNT 3.49 10^6/ul (4.20-5.40); RED CELL DISTRIBUTION WIDTH 14.3 % (11.5-14.5); UNCORRECTED WBC 6.3 10^3/ul (4.8-10.8); WHITE BLOOD COUNT 6.3 10^3/ul (4.8-10.8)
[2016-10-25 06:40] LABS: CONDITION 1
[2016-10-25 06:47] LABS: POTASSIUM 3.8 mmol/L (3.5-5.1)
[2016-10-25 06:49] LABS: CREATININE 0.42 mg/dl (0.44-1.00)
[2016-10-25 07:54] VITALS: BP 144/74; RESP 16
[2016-10-25] MEDS: ALBUTEROL/IPRATROPIUM (NEB) 3 ML AMP HHN SCH ×4 (08:00→19:56)
[2016-10-25] MEDS: FAMOTIDINE 20 MG INJ IV SCH (08:23)
[2016-10-25] MEDS: SALMETEROL/FLUTICASONE 250/50 INHA INH SCH ×2 (08:24→20:23)
[2016-10-25] MEDS: ENOXAPARIN 40 MG/0.4 ML SYG SC SCH (09:03)
--- NOTE | 2016-10-25 16:11 | CONS ---
DATE OF ADMISSION: 10/21/2016 DATE OF CONSULTATION: 10/25/2016 REASON FOR CONSULTATION: Shortness of breath. Thank you, Dr. Jacinto, for this consultation. HISTORY OF PRESENT ILLNESS: The patient is a 65-year-old lady originally admitted for abdominal saida n, nausea, vomiting with underlying history of COPD, hypertension, hyperlipidemia, and found on MRCP on 10/21/2017 to have a stone in common bile duct. She underwent ERCP on 10/22/2016 with sphincter otomy and removal of stone, following which she had a laparoscopic cholecystectomy performed for acu te cholecystitis on 10/23/2016. Preop workup showed evidence of pulmonary hypertension with severe pulmonary hypertension, PA pressure of 78 with moderate to severe tricuspid regurgitation. The marixa ent denies any history of chronic thromboembolic disease, possible underlying obstructive sleep apne a with evidence of COPD from history. PAST MEDICAL HISTORY: As above. MEDICATIONS: Per chart. ALLERGIES: NONE. SOCIAL HISTORY: Nonsmoker, no alcohol, no history of drug use. FAMILY HISTORY: Noncontributory. SYSTEMS REVIEW: A 12-point review of systems was negative other than that mentioned above. PHYSICAL EXAMINATION: GENERAL: Well-nourished, well-developed lady, comfortable at rest, no acute distress. VITAL SIGNS: Currently afebrile, pulse is 78, blood pressure 148/77, O2 saturation 96% on 2 L nasal cannula. NECK: Supple. No JVD or lymphadenopathy. CARDIAC: S1, S2, no added sounds or murmurs. CHEST: Diminished air entry bilaterally. ABDOMEN: Soft, nontender. No guarding or rebound. EXTREMITIES: No cyanosis, clubbing, edema. NEUROLOGIC: Grossly intact. No focal deficits. LABORATORY DATA: White count 7.3, hemoglobin 9.9, platelets 152. Chemistry within normal limits. INR 1.22. PaO2 was 57 on room air. IMPRESSION AND PLAN: 1. Incidental finding of severe pulmonary hypertension. 2. Status post laparoscopic cholecystectomy. 3. Mild hypoxemia. The patient will require: 1. Repeat arterial blood gas on room air. 2. Outpatient sleep study and outpatient pulmonary function testing. 3. Follow up with [facility] for continue workup of pulmonary hypertension. Dictated By: COLT URIARTE MD SV/DAMIAN Conf#: [id number] DID#: [id number]
[2016-10-25 19:24] VITALS: BP 148/75; RESP 20
[2016-10-25] MEDS: HYDROCODONE/APAP (5/325) TAB PO PRN (20:24)
--- NOTE | 2016-10-25 21:09 | PN ---
Date/Time of Note Date/Time of Note DATE: 10/25/16 TIME: 21:05 Assessment/Plan VTE Prophylaxis VTE Prophylaxis Intervention: SCD's Lines/Catheters IV Catheter Type (from [facility]): Saline Lock Urinary Cath still in place: No Assessment/Plan Chief Complaint/Hosp Course Assessment and plan 1. Cholelithiasis with cholecystitis. Patient is status post laparoscopic cholecystectomy. . Continue with analgesics. 2. Choledocholithiasis. Patient status post ERCP with stone removal. Monitor LFT. Continue IV hydration. 3. Diverticulitis. Noted CT scan showing evidence of descending colon diverticulitis. npo for now. Continue antibiotics. 4. Sirs like secondary to cholecystitis/choledocholithiasis/cholelithiasis and diverticulitis. Improving. Will monitor 5. COPD. Continue on bronchodilators 6. Hypokalemia. We'll monitor and replete as needed 7. Dyslipidemia. Patient to be resumed on statin medication was able to tolerate oral intake 8. Prediabetes. Continue carbohydrate controlled diet. Of note A1c of 6.1. 9. Vaginal prolapse. Patient did have ultrasound showing absent uterus and ovaries no evidence of adnexal mass. Patient follow-up with palliative surgeon as outpatient 10. Elevated BNP. Patient was ordered echocardiogram. Per echo patient did have RVSP of 78. Follow up rapid outsole stitcher recs 11. Pulmonary hypertension. Logistics System Engineer consulted. cont with recs DvT prophylaxis: SCDs GERD prophylaxis: H2 manuel Disposition and plan: Still hypoxic on ABG,. Will see for possible home with o2. Will follow up Discussed plan of care with Problems: Subjective 24 Hr Interval Summary Free Text/Dictation no s/s of distress Exam/Review of Systems Vital Signs Vitals Vital Signs Date Time Temp Pulse Resp B/P Pulse Ox O2 Delivery O2 Flow Rate FiO2 10/25/16 19:56 2.0 10/25/16 19:24 99.6 69 20 148/75 99 10/25/16 17:55 28 10/25/16 13:52 Nasal Cannula Intake and Output 10/24/16 10/24/16 10/25/16 15:00 23:00 07:00 Intake Total 1374.5455 ml 600 ml Balance 1374.5455 ml 600 ml Exam General: No acute signs or symptoms of distress Eyes: pupils equal round, Anicteric sclera Neck: Supple nontender, no JVD Cardiac: S1, S2 auscultated, regular rhythm and rate Pulmonary: No coarse rhonchi or breathing auscultated GI: Minimally tender on palpation Extremities: No edema bilateral lower extremities Skin: Surgical site clean dry and intact Neurologic: Alert to person place and time and situation Results Result Diagram: 10/25/16 0509 10/25/16 0509 Results 24 hrs Laboratory Tests Test 10/25/16 05:09 Anion Gap 14 Basophils # 0.0 Basophils % 0.5 Blood Morphology Comment Blood Urea Nitrogen 5 L Calcium Level 8.0 L Carbon Dioxide Level 32 H Chloride Level 100 Creatinine 0.42 L Eosinophils # 0.2 Eosinophils % 3.2 Glucose Level 111 # Hematocrit 30.0 L Hemoglobin 9.9 L Lymphocytes # 1.4 Lymphocytes % 21.9 Mean Corpuscular Hemoglobin 28.2 L Mean Corpuscular Hemoglobin Concent 32.8 Mean Corpuscular Volume 86.0 Mean Platelet Volume 9.4 Monocytes # 0.6 Monocytes % 9.8 Neutrophils # 4.1 Neutrophils % 64.6 Nucleated Red Blood Cells # 0.0 Nucleated Red Blood Cells % 0.0 Platelet Count 152 # Potassium Level 3.8 Red Blood Count 3.49 L Red Cell Distribution Width 14.3 Sodium Level 142 White Blood Count 6.3 Medications Medications Current Medications Ondansetron HCl (Zofran Inj) 4 mg Q6H PRN IV NAUSEA AND/OR VOMITING; Start at 11:30 Acetaminophen (Tylenol Supp) 650 mg Q6H PRN [place] PAIN LEVEL 1-3 OR FEVER Last administered on 10/22/16 08:21; Admin Dose 650 MG; Start 10/21/16 at 11:30 Morphine Sulfate (morphine) 2 mg Q4H PRN IV SEVERE PAIN LEVEL 7-10 Last administered on 10/21/16at 13:01; Admin Dose 2 MG; Start 10/21/16 at 11:30 Famotidine (Pepcid Iv) 20 mg DAILY IV Last administered on 10/25/16 08:23; Admin Dose 20 MG; Start 10/21/16 at 21:00 Salmeterol Xinafoate/ Fluticasone (Advair 250/50 Diskus) 1 inh BID INH Last administered on 10/25/16 20:23; Admin Dose 1 INH; Start 10/21/16 at 21:00 Hydralazine HCl (Apresoline) 10 mg Q6H PRN IV SBP>160; Start 10/21/16 at 13:00 Acetaminophen/ Hydrocodone Bitart ([place] (5/325)) 1 tab Q4H PRN PO PAIN LEVEL 4 -7 Last administered on 10/25/16 20:24; Admin Dose 1 TAB; Start 10/23/16 at 12:00 Acetaminophen/ Hydrocodone Bitart ([place] (5/325)) 2 tab Q4H PRN PO PAIN LEVEL 7 -10 Last administered on 10/24/16 23:09; Admin Dose 2 TAB; Start 10/23/16 at 12: 00 Hydromorphone HCl (Dilaudid) 0.5 mg Q2 PRN IV PAIN; Start 10/23/16 at 12:00 Hydromorphone HCl (Dilaudid) 1 mg Q2 PRN IV PAIN; Start 10/23/16 at 12:00 Docusate Sodium (Colace) 100 mg BID PRN PO CONSTIPATION; Start 10/23/16 at 12:00 Bisacodyl (Dulcolax Supp) 10 mg BID PRN [place] CONSTIPATION; Start 10/23/16 at 12:00 Sodium Biphosphate/ Sodium Phosphate (Fleet Enema) 133 ml BID PRN [place] CONSTIPATION; Start 10/23/16 at 12:00 Enoxaparin Sodium (Lovenox) 40 mg DAILY SC Last administered on 10/25/16 09:03 ; Admin Dose 40 MG; Start 10/24/16 at 09:00 JOSE PETERSEN Oct 25, 2016 21:09
--- NOTE | 2016-10-25 22:29 | PN ---
Date/Time of Note Date/Time of Note DATE: 10/25/16 TIME: 16:28 Assessment/Plan Lines/Catheters IV Catheter Type (from [facility]): Saline Lock Klein in Place (from [facility]): No Assessment/Plan Assessment/Plan [facility] Inpatient Progress Note Date of Service: 10/25/16 Today's Assessment & Plan: Overall stable and improving without any obvious evidence of major postoperative complication. Abdomen continues to remain benign. Would be okay from my standpoint for patient to discharge home if okay by other physicians and providers. With above assessment, I've recommended the following for today: 1. Continue current cares 2. Discharge home when medically stable 3. Please include the following in the patient's discharge instructions: "Please call [phone] if any of fever, nausea, vomiting, discharge from wound, wound redness, increase or sudden pain, blood in stool or vomit, or any other unusual signs or symptoms. Also, please call the same number in a few days to schedule an appointment for your follow up visit. Patient may remove dressings tomorrow. Showers OK starting tomorrow. No swimming , hot tub or bath for 2 weeks. No lifting more than 25 lbs for 8 weeks." Thank you again for your great care of this very pleasant lady and her wonderful family. If there are any questions, please feel free to call me at [phone]. TOTAL VISIT TIME: 20 minutes of which more than half was spent in [id number] discussion with the patient as well as coordination of care between multiple physicians and providers. Disclaimer: Inadvertent spelling and grammatical errors are likely due to EHR/ dictation software use and do not reflect on the quality of delivered patient care. Also, please note that the electronic time recorded on this node does not necessarily reflect the actual time of the visit. Updated Clinical Summary: The patient is a very pleasant 65-year-old lady with comorbid issues of history of asthma and hyperlipidemia presenting with biliary colic and possible early acute cholecystitis. Elevated alkaline phosphatase. MRCP 10/21/2017 showed possible stone within common bile duct. Status post ERCP 10/22/2016 with sphincterotomy, removal of one stone, and placement of A 10 x 7 Etoile type of endobiliary prosthesis. S/p a somewhat challenging but otherwise uncomplicated laparoscopic cholecystectomy was performed with findings of acute cholecystitis on 10/23/16. Past and present comorbidities list: 1. Choledocholithiasis, status post ERCP and removal of one stone from common bile duct 10/22/2016; status post laparoscopic cholecystectomy 10/23/2016 2. Acute cholecystitis 3. Asthma 4. Hyperlipidemia Subjective: No major events or complaints; no major pain complaints and reportedly under control with medications; no n/v/d; no sob or cp; - flatus; - BM; - activity Objective: Vitals: See below I's & O's: See below Exam: GENERAL: On exam, the patient was lying in bed and appeared to be comfortable and in no acute distress. ABDOMEN: Soft, nontender and nondistended. There are no peritoneal signs or guarding. Incision dressings c/d/i w/o obvious underlying e/e/d/h. SKIN: Skin appears to be pink and feels warm to touch. NEUROLOGIC: Patient is awake, alert, and follows commands appropriately. Labs: See below Exam/Review of Systems Vital Signs Vitals Vital Signs Date Time Temp Pulse Resp B/P Pulse Ox O2 Delivery O2 Flow Rate FiO2 10/25/16 19:56 2.0 10/25/16 19:24 99.6 69 20 148/75 99 10/25/16 17:55 28 10/25/16 13:52 Nasal Cannula Intake and Output 10/24/16 10/24/16 10/25/16 15:00 23:00 07:00 Intake Total 1374.5455 ml 600 ml Balance 1374.5455 ml 600 ml Results Result Diagram: 10/25/16 0509 10/25/16 0509 ZULEMA POTTER M.D. Oct 25, 2016 22:29
[2016-10-26 05:30] LABS: BASOPHILS % 0.5 % (0.0-2.0); EOSINOPHILS # 0.3 10^3/ul (0.0-0.5); EOSINOPHILS % 3.3 % (0.0-7.0); HEMATOCRIT 36.1 % (37.0-47.0); HEMOGLOBIN 11.9 g/dl (12.0-16.0); LYMPHOCYTES # 2.3 10^3/ul (0.8-2.9); LYMPHOCYTES % 28.4 % (15.0-51.0); MEAN CORPUSCULAR HEMOGLOBIN 28.4 pg (29.0-33.0); MEAN CORPUSCULAR HGB CONC 33.1 g/dl (32.0-37.0); MEAN CORPUSCULAR VOLUME 85.8 fl (82.0-101.0); MEAN PLATELET VOLUME 8.9 fl (7.4-10.4); MONOCYTE # 0.9 10^3/ul (0.3-0.9); MONOCYTES % 10.7 % (0.0-11.0); NEUTROPHIL # 4.6 10^3/ul (1.6-7.5); NEUTROPHILS % 57.1 % (39.0-77.0); PLATELET COUNT 207 10^3/UL (140-440); RED BLOOD COUNT 4.21 10^6/ul (4.20-5.40); RED CELL DISTRIBUTION WIDTH 14.2 % (11.5-14.5)
[2016-10-26 05:32] LABS: CONDITION 1
[2016-10-26 05:34] LABS: CREATININE 0.43 mg/dl (0.44-1.00)
[2016-10-26 05:35] LABS: CALCIUM 8.7 mg/dl (8.4-10.2)
[2016-10-26 06:14] LABS: POTASSIUM 2.8 mmol/L (3.5-5.1)
[2016-10-26] MEDS: POTASSIUM CHLORIDE (SR) 20 MEQ TAB PO SCH ×2 (07:28→11:42)
[2016-10-26 08:06] VITALS: BP 121/74; RESP 16
[2016-10-26] MEDS: ALBUTEROL/IPRATROPIUM (NEB) 3 ML AMP HHN SCH ×3 (08:30→21:33)
[2016-10-26] MEDS: SALMETEROL/FLUTICASONE 250/50 INHA INH SCH ×2 (09:27→20:32)
[2016-10-26] MEDS: FAMOTIDINE 20 MG INJ IV SCH (09:28)
[2016-10-26] MEDS ORDERED: POTASSIUM CHLORIDE 250 ML IVPB ONE (09:30)
[2016-10-26] MEDS: ENOXAPARIN 40 MG/0.4 ML SYG SC SCH (09:37)
[2016-10-26 09:43] LABS: AADO2 Arterial 50.6 mmHg (7.0-24.0); Allen Test ACCEPTAB; Arterial Base Excess 6.9 mmol/L (-3.0-3); Arterial COHb 0.4 % (0.0-3.0); Arterial Fraction of Oxyhgb 86.3 % (93.0-99.0); Arterial HCO3 30.8 mmol/L (22.0-26.0); Arterial MetHb 0.1 % (0.0-1.5); Arterial Total Hemglobin 13.4 g/dl (12.0-18.0); MODE ROOM AIR
--- NOTE | 2016-10-26 12:39 | CONS ---
Date/Time of Note Date/Time of Note DATE: 10/26/16 TIME: 12:36 Consult Date/Type/Reason Admit Date/Time Oct 21, 2016 at 10:54 Initial Consult Date Type of Consultation: Pulm Subjective Comfortable. No sob at rest. Objective Vital Signs Date Time Temp Pulse Resp B/P Pulse Ox O2 Delivery O2 Flow Rate FiO2 10/26/16 08:31 2.0 28 10/26/16 08:31 76 20 97 Nasal Cannula 10/26/16 08:06 98.9 121/74 Intake and Output 10/25/16 10/25/16 10/26/16 14:59 22:59 06:59 Intake Total 780 ml 400 ml Balance 780 ml 400 ml PHYSICAL EXAMINATION: GENERAL: Well-nourished, well-developed lady, comfortable at rest, no acute distress. VITAL SIGNS: NECK: Supple. No JVD or lymphadenopathy. CARDIAC: S1, S2, no added sounds or murmurs. CHEST: Diminished air entry bilaterally. Bibasilar rales. ABDOMEN: Soft, nontender. No guarding or rebound. EXTREMITIES: No cyanosis, clubbing, edema. NEUROLOGIC: Grossly intact. No focal deficits. Results/Medications Result Diagram: 10/26/16 0448 10/26/16 0448 Results 24 hrs Laboratory Tests Test 10/26/16 04:48 10/26/16 08:00 Anion Gap 16 Basophils # 0.0 Basophils % 0.5 Blood Morphology Comment Blood Urea Nitrogen 5 L Calcium Level 8.7 Carbon Dioxide Level 33 H Chloride Level 98 Creatinine 0.43 L Eosinophils # 0.3 Eosinophils % 3.3 Glucose Level 92 Hematocrit 36.1 #L Hemoglobin 11.9 #L Lymphocytes # 2.3 Lymphocytes % 28.4 Mean Corpuscular Hemoglobin 28.4 L Mean Corpuscular Hemoglobin Concent 33.1 Mean Corpuscular Volume 85.8 Mean Platelet Volume 8.9 Monocytes # 0.9 Monocytes % 10.7 Neutrophils # 4.6 Neutrophils % 57.1 Nucleated Red Blood Cells # 0.0 Nucleated Red Blood Cells % 0.0 Platelet Count 207 # Potassium Level 2.8 *L Red Blood Count 4.21 # Red Cell Distribution Width 14.2 Sodium Level 144 White Blood Count 8.0 # Arterial Blood HCO3 30.8 H Arterial Blood Base Excess 6.9 H Arterial Blood Oxygen Saturation 86.7 L Maximus Test ACCEPTAB Arterial Blood Gas Puncture Site Right Radial Arterial Blood Carboxyhemoglobin 0.4 Arterial Blood Date Drawn 10/26/2016 9:30:04 AM Arterial Blood Methemoglobin 0.1 Arterial Blood pCO2 (Temp correct) 41.2 Arterial Blood pH (Temp corrected) 7.492 H Arterial Blood pO2 (Temp corrected) 49.8 *L Blood Gas A-a O2 Differential 50.6 H Blood Gas Critical Value Read Back Omar ARSHAD RN Blood Gas Modality ROOM AIR Blood Gas Notified Time 10/26/2016 9:42:02 AM Blood Gas Notified Whom ESTEED Blood Gas Specimen Source Blood arterial Blood Gas Temperature 37.0 FiO2 21.0 Oxyhemoglobin Percent 86.3 L Total Hemoglobin 13.4 Medications Current Medications Ondansetron HCl (Zofran Inj) 4 mg Q6H PRN IV NAUSEA AND/OR VOMITING; Start at 11:30 Acetaminophen (Tylenol Supp) 650 mg Q6H PRN [place] PAIN LEVEL 1-3 OR FEVER Last administered on 10/22/16 08:21; Admin Dose 650 MG; Start 10/21/16 at 11:30 Morphine Sulfate (morphine) 2 mg Q4H PRN IV SEVERE PAIN LEVEL 7-10 Last administered on 10/21/16at 13:01; Admin Dose 2 MG; Start 10/21/16 at 11:30 Famotidine (Pepcid Iv) 20 mg DAILY IV Last administered on 10/26/16 09:28; Admin Dose 20 MG; Start 10/21/16 at 21:00 Salmeterol Xinafoate/ Fluticasone (Advair 250/50 Diskus) 1 inh BID INH Last administered on 10/26/16 09:27; Admin Dose 1 INH; Start 10/21/16 at 21:00 Hydralazine HCl (Apresoline) 10 mg Q6H PRN IV SBP>160; Start 10/21/16 at 13:00 Acetaminophen/ Hydrocodone Bitart ([place] (5/325)) 1 tab Q4H PRN PO PAIN LEVEL 4 -7 Last administered on 10/25/16 20:24; Admin Dose 1 TAB; Start 10/23/16 at 12:00 Acetaminophen/ Hydrocodone Bitart ([place] (5/325)) 2 tab Q4H PRN PO PAIN LEVEL 7 -10 Last administered on 10/24/16 23:09; Admin Dose 2 TAB; Start 10/23/16 at 12: 00 Hydromorphone HCl (Dilaudid) 0.5 mg Q2 PRN IV PAIN; Start 10/23/16 at 12:00 Hydromorphone HCl (Dilaudid) 1 mg Q2 PRN IV PAIN; Start 10/23/16 at 12:00 Docusate Sodium (Colace) 100 mg BID PRN PO CONSTIPATION; Start 10/23/16 at 12:00 Bisacodyl (Dulcolax Supp) 10 mg BID PRN [place] CONSTIPATION; Start 10/23/16 at 12:00 Sodium Biphosphate/ Sodium Phosphate (Fleet Enema) 133 ml BID PRN [place] CONSTIPATION; Start 10/23/16 at 12:00 Enoxaparin Sodium 40 mg 40 mg DAILY SC Last administered on 10/26/16 09:37; Admin Dose 40 MG; Start 10/24/16 at 09:00 Potassium Chloride (KCl 40 MEQ/250 ML NS) 250 ml @ 62.5 mls/hr ONCE ONCE IVPB Last administered on 10/26/16 10:13; Admin Dose 62.5 MLS/HR; Start 10/26/16 at 09:30; Stop 10/26/16 at 13:29 Assessment/Plan Chief Complaint/Hosp Course IMPRESSION AND PLAN: 1. Incidental finding of severe pulmonary hypertension. 2. Status post laparoscopic cholecystectomy. 3. Hypoxemic respiratory failure 4. Evidence of apical emphysema on CT chest 5. PFTS c/w Restrictive lung disease, severely decreased DLCO The patient will require: 1. Home o2 3L continuous 2. Outpatient sleep study 3. Follow up with [facility] for continue workup of pulmonary hypertension and chronic hypoxia. discharge ok from pulm standpoint. Problems: COLT URIARTE MD, FCCP Oct 26, 2016 12:39
--- NOTE | 2016-10-26 17:11 | DS ---
DATE OF ADMISSION: 10/21/2016 DATE OF DISCHARGE: 10/26/2016 CONSULTANTS: 1. Dr. Jamie Matthews. 2. Dr. Rm Carrillo, DISCHARGE DIAGNOSES: 1. Cholelithiasis with cholecystitis. 2. Choledocholithiasis. 3. Diverticulitis. 4. Chronic obstructive pulmonary disease. 5. Hypokalemia. 6. Dyslipidemia. 7. Elevated brain natriuretic peptide with pulmonary hypertension. HOSPITAL COURSE: This is a 65-year-old female with past medical history of COPD and dyslipidemia wh o came to [facility] with reports of abdominal pain with multiple episodes of bili ous emesis that started on 09/23/2016. Patient did report that she had 10 episodes of vomiting on 1 11/24/2015. She denied any diarrhea or constipation. She did come to [facility] due to the aforementioned issues. In the ER, she had a gallbladder ultrasound that did show distend ed gallbladder containing multiple gallstones and sludge with abnormal wall thickening suggestive of acute cholecystitis. There is no biliary duct dilation. The patient also underwent CT scan of the abdomen that did show extensive diverticulosis of the descending and sigmoid colon with focal thick ening of the distal descending colon with surrounding pericolonic stranding consistent with divertic ulitis, but no evidence of peridiverticular abscess. She also had a white count of 16. The patient was placed on antibiotics. Patient was seen by counselor camp as well as surgeon. The patient did have further imaging with MRCP on 10/21/2016 that did show cholelithiasis with numerous subcent imeter gallstones. There was also choledocholithiasis seen with 4 mm calculus in the distal common bile duct. Patient did undergo ERCP with removal of stone. The patient also did undergo laparoscop ic cholecystectomy for which she did tolerate well. We did monitor her liver enzymes and they did g radually improve. Of note, she did have improvement with her abdominal pain. She was noted on Neurolink work to have elevated BNP and some shortness of breath. We did get an echocardiogram for her that did show her to have an ejection fraction of 55% with stage I diastolic dysfunction, however, it wa s noted that she had a PA systolic pressure of 78 mmHg. We did get manager trade's consultation. S he was placed on supplemental oxygen as well as bronchodilators. After assessment, the patient was also noted to have low pO2 on her ABG. After ambulating the patient on room air, she was seen with pH of 7.49, pO2 of 49.8, bicarbonate of 30.8 and CO2 of 41.2. Patient did meet requirement for oxyg en for home. We did make sure this provided patient with oxygen for home for her pulmonary hyperten amanda. She was instructed to follow up with [facility] for further management and car e of her pulmonary hypertension and also possible need for sleep study. During her course of stay, she did improve. She was otherwise optimized medically. She was continued on statin for her dyslip idemia and we did replace her electrolyte imbalance, particularly her low potassium. The plan of ca re was discussed with patient and patient did verbalize understanding. On the day of discharge, the patient was in stable condition. On discharge physical exam, her vital signs are stable. DISCHARGE PLAN 1. Patient to follow up with Dr. Jamie Matthews within a week. 2. Patient to follow up with primary care provider in 1 to 2 weeks. DISCHARGE MEDICATIONS: 1. ProAir 2 puffs every 4 hours as needed for shortness of breath. 2. Cipro 500 mg p.o. b.i.d. 3. [place] 5/325 one tab p.o. every 4 hours as needed for pain. 4. Flagyl 500 mg p.o. q.8 hours. 5. Advair 250/50 one puff b.i.d. DISCHARGE PROCESS TIME: 40 minutes. Discussed plan of care with Dr. Jacinto. Dictated By: JOSE PETERSEN NAVIGATION TEACHER for [employer]DAMIAN Conf#: [id number] DID#: [id number]
[2016-10-26 19:59] VITALS: BP 109/63; RESP 20
[2016-10-27 06:24] LABS: POTASSIUM 3.1 mmol/L (3.5-5.1)
[2016-10-27 06:26] LABS: BASOPHILS % 0.5 % (0.0-2.0); CREATININE 0.41 mg/dl (0.44-1.00); EOSINOPHILS # 0.2 10^3/ul (0.0-0.5); EOSINOPHILS % 2.2 % (0.0-7.0); HEMOGLOBIN 12.3 g/dl (12.0-16.0); LYMPHOCYTES # 2.1 10^3/ul (0.8-2.9); LYMPHOCYTES % 23.3 % (15.0-51.0); MEAN CORPUSCULAR HEMOGLOBIN 28.6 pg (29.0-33.0); MEAN CORPUSCULAR HGB CONC 33.3 g/dl (32.0-37.0); MEAN CORPUSCULAR VOLUME 85.8 fl (82.0-101.0); MEAN PLATELET VOLUME 8.6 fl (7.4-10.4); MONOCYTE # 0.9 10^3/ul (0.3-0.9); MONOCYTES % 9.8 % (0.0-11.0); NEUTROPHIL # 5.8 10^3/ul (1.6-7.5); NEUTROPHILS % 64.2 % (39.0-77.0); PLATELET COUNT 240 10^3/UL (140-440); RED BLOOD COUNT 4.31 10^6/ul (4.20-5.40); RED CELL DISTRIBUTION WIDTH 14.4 % (11.5-14.5); UNCORRECTED WBC 9.1 10^3/ul (4.8-10.8); WHITE BLOOD COUNT 9.1 10^3/ul (4.8-10.8)
[2016-10-27 06:27] LABS: CALCIUM 8.8 mg/dl (8.4-10.2)
[2016-10-27 06:36] LABS: CONDITION 1
[2016-10-27 07:25] VITALS: BP 100/59; RESP 16
[2016-10-27] MEDS: ALBUTEROL/IPRATROPIUM (NEB) 3 ML AMP HHN SCH (08:34)
[2016-10-27] MEDS ORDERED: FAMOTIDINE 20 MG TAB PO SCH (09:00)
[2016-10-27] MEDS: SALMETEROL/FLUTICASONE 250/50 INHA INH SCH (09:19)
[2016-10-27] MEDS: FAMOTIDINE 20 MG INJ IV SCH (09:19)
[2016-10-27] MEDS: ENOXAPARIN 40 MG/0.4 ML SYG SC SCH (09:55)
== END 2016-10-27 10:40 | disposition home or self-care (01) | DRG 418 ==
LOC: E/R 08:25 → MS2 10:54
PROVIDERS: ADMIT Student in an Organized Health Care Education/Training Program; ATTEND Student in an Organized Health Care Education/Training Program
PROC: 0F798DZ Dilation of Common Bile Duct with Intraluminal Device, Via Natural or Artificial Opening Endoscopic (ICD-10-PCS; 2016-10-22)
PROC: 0FC98ZZ Extirpation of Matter from Common Bile Duct, Via Natural or Artificial Opening Endoscopic (ICD-10-PCS; principal; 2016-10-22 13:00)
PROC: 0FT44ZZ Resection of Gallbladder, Percutaneous Endoscopic Approach (ICD-10-PCS; 2016-10-23)
DX: K80.62 Calculus of gallbladder and bile duct with acute cholecystitis without obstruction (principal); R65.10 Systemic inflammatory response syndrome (SIRS) of non-infectious origin without acute organ dysfunction; J44.9 Chronic obstructive pulmonary disease, unspecified; K57.92 Diverticulitis of intestine, part unspecified, without perforation or abscess without bleeding; D72.829 Elevated white blood cell count, unspecified; E87.6 Hypokalemia; E78.5 Hyperlipidemia, unspecified; N81.10 Cystocele, unspecified; J45.909 Unspecified asthma, uncomplicated
CPT/HCPCS: 36415; 36430; 36600; 71010; 71275; 74176; 74181; 74330; 76705; 76856; 80048; 80053; 80061; 81001; 81003; 82803; 83036; 83605; 83690; 83735; 83880; 84100; 84436; 84439; 84443; 84479; 84484; 85025; 85610; 85730; 86850; 86900; 86901; 87040; 87086; 88304; 90686; 93005; 93306; 94060; 94640; 94664; 94726; 94729; 96374; 96375; C2617; J0330; J1650; J2060; J2250; J2270; J2405; J2543; J2710; J2765; J3010; J3475; J3480; J7030; J7040; J7050; J7070; P9059; Q9967

== ENCOUNTER 2016-11-15 13:56 | Outpatient (CLI) | payer SELFPAY ==
[~2016-11-15] VITALS: Ht 149.9 cm; Wt 52.0 kg
[~2016-11-15 13:56] MED LIST: ADV25050 INH; ALBU8.5H3 INH; CIPR500T4 PO; HYDR-3498 PO; METR500T PO
[2016-11-15 14:02] VITALS: BP 112/57; PULSE 85; RESP 18; Ht 149.9 cm; Wt 52.0 kg
--- NOTE | 2016-11-15 15:04 | PN ---
Date/Time of Note Date/Time of Note DATE: 11/15/16 TIME: 14:55 Assessment/Plan Assessment/Plan Assessment/Plan [facility] Inpatient Progress Note Date of Service: 11/15/16 Today's Assessment & Plan: Overall stable and doing well without any obvious evidence of major postoperative complication. Abdomen continues to remain benign. Needs CBD stent out. With above assessment, I've recommended the following for today: 1. F/u appt with Dr. Dupont to have the CBD stent out 2. F/u with PCP 3. F/u with us prn Thank you again for your great care of this very pleasant lady and her wonderful family. If there are any questions, please feel free to call me at . TOTAL VISIT TIME: 20 minutes of which more than half was spent in [id number] discussion with the patient as well as coordination of care between multiple physicians and providers. Disclaimer: Inadvertent spelling and grammatical errors are likely due to EHR/ dictation software use and do not reflect on the quality of delivered patient care. Also, please note that the electronic time recorded on this node does not necessarily reflect the actual time of the visit. Updated Clinical Summary: The patient is a very pleasant 65-year-old lady with comorbid issues of history of asthma and hyperlipidemia presenting with biliary colic and possible early acute cholecystitis. Elevated alkaline phosphatase. MRCP 10/21/2017 showed possible stone within common bile duct. Status post ERCP 10/22/2016 with sphincterotomy, removal of one stone, and placement of A 10 x 7 [place] type of endobiliary prosthesis. S/p a somewhat challenging but otherwise uncomplicated laparoscopic cholecystectomy was performed with findings of acute cholecystitis on 10/23/16. Past and present comorbidities list: 1. Choledocholithiasis, status post ERCP and removal of one stone from common bile duct 10/22/2016; status post laparoscopic cholecystectomy 10/23/2016 2. Acute cholecystitis 3. Asthma 4. Hyperlipidemia Subjective: No major events or complaints since d/c home; no major pain complaints and not on any more pain medications; no n/v/d; no sob or cp; + flatus; + BM; + activity Objective: Vitals: See below I's & O's: See below Exam: GENERAL: On exam, the patient was sitting in a chair and appeared to be comfortable and in no acute distress. ABDOMEN: Soft, nontender and nondistended. There are no peritoneal signs or guarding. Incisions c/d/i w/o obvious e/e/d/h. SKIN: Skin appears to be pink and feels warm to touch. NEUROLOGIC: Patient is awake, alert, and follows commands appropriately. Labs: See below Exam/Review of Systems Vital Signs Vitals Vital Signs Date Time Temp Pulse Resp B/P Pulse Ox O2 Delivery O2 Flow Rate FiO2 11/15/16 14:02 98.3 85 18 112/57 95 Room Air ZULEMA POTTER M.D. Nov 15, 2016 15:04
== END 2016-11-15 16:28 | disposition home or self-care (01) ==
LOC: HPC 13:56
PROVIDERS: ATTEND Transplant Surgery
DX: K80.42 Calculus of bile duct with acute cholecystitis without obstruction (principal); J45.909 Unspecified asthma, uncomplicated; E78.5 Hyperlipidemia, unspecified
CPT/HCPCS: G0463

== ENCOUNTER 2016-12-07 16:09 | Emergency (ER) | payer MEDICAID ==
[~2016-12-07] VITALS: Wt 51.5 kg
[~2016-12-07 16:09] MED LIST changes: -CIPR500T4 PO; -HYDR-3498 PO; -METR500T PO
--- NOTE | 2016-12-07 17:28 | ERD ---
ER Documentation Chief Complaint Date/Time DATE: 12/07/16 TIME: 17:26 Chief Complaint surgeon wants to be called to remove drain from liver left from sx in Oct. HPI Die Baker use. 66-year-old female who on October 22 underwent ERCP with stent placement, on October 23 the patient had cholecystectomy. The patient was discharged on October 26. The patient presents to the emergency room because "someone told us to come to the emergency room to see a surgeon to have the stent removed ". The patient and patient's family cannot tell me who told him to come to the emergency room. She denies any fevers, chills, chest pain, shortness of breath, no right upper quadrant abdominal pain, no jaundice. ROS All systems reviewed and are negative except as per history of present illness. Medications Home Meds Active Scripts Albuterol Sulfate* (Proair HFA*) 8.5 Gm Hfa.aer.ad, 2 PUFF INH Q4H Y for WHEEZING AND SOB, #1 INHALER Prov:REGZENOBIARJOSE 10/24/16 Salmeterol Xinaf/Fluticasone* (Advair*) 250-50 Diskus Inhaler, 1 INH INH BID, # 1 INH Prov:JOSE PETERSEN 10/24/16 Allergies Allergies: Coded Allergies: No Known Allergy (Unverified , 10/23/16) PMhx/Soc History of Surgery: Yes (HYSTERECTOMY 14 YRS AGO) Anesthesia Reaction: No Hx Neurological Disorder: No Hx Respiratory Disorders: No Hx Cardiac Disorders: No Hx Psychiatric Problems: No Hx Miscellaneous Medical Probl: No Hx Alcohol Use: No Hx Substance Use: No Hx Tobacco Use: No Smoking Status: Never smoker FmHx Family History: No diabetes Physical Exam Vitals Vital Signs Date Time Temp Pulse Resp B/P Pulse Ox O2 Delivery O2 Flow Rate FiO2 12/07/16 16:13 98.5 82 20 121/65 99 Physical Exam General: Well developed, well nourished, no acute distress Head: Normocephalic, atraumatic. Eyes: EOM intact ENT: Moist mucous membranes Neck: Full ROM Respiratory: No respiratory distress Cardiovascular: Good capillary refil Abdominal: Nondistended, no rebound or guarding, no focal tenderness, surgical site well-appearing, negative Aldrich sign : Deferred MSK: No edema, no unilateral swelling, 5/5 strength Neurologic: Alert and oriented, moving all extremities, normal speech, steady gait Skin: No rash Psych: Normal mood Procedures/MDM It is unclear who sent the patient to the emergency room. She has no signs or symptoms concerning for stent migration, complication or obstruction. She has no jaundice no fever and is otherwise extremely well-appearing she is asymptomatic. I was able to speak to Dr. Matthews, the general surgeon who performed cholecystectomy. He states that he has signed off the case and followed up with the patient as an outpatient. He did not send the patient to the ER I was able to speak to Dr. Dupont, the meter installer and remover who performed the stent placement. He states that he did not send the patient to the emergency room. He states that stent removal is a outpatient procedure and the patient can safely be discharged from the emergency room and follow-up in his office. At this time it is unclear until the patient to come to the emergency room. The managing providers did not send the patient to the ER. There is no indication for laboratory testing, diagnostic imaging or emergent stent removal. The patient has been referred to Dr. Dupont. We discussed follow up with the patient's primary care doctor within 24 to 48 hours as needed. We also discussed return to the emergency room for worsening symptoms or worsening condition. Departure Diagnosis: Primary Impression: History of biliary stent insertion Additional Impression: Encounter for medical screening examination Condition: Stable Patient Instructions: Medical Screening Exam, Nonurgent Referrals: CRUZ DUPONT MD [facility] () Usted se eastman hecho un examen mdico de control que le indica que no est en marci condicin que requiera tratamiento urgente en el Departamento de Emergencia. Un estudio ms profundo y el tratamiento de fierro condicin pueden esperar sin ningn riesgo hasta que usted sea atendida/o en el consultorio de fierro mdico o marci cl samanta. Es responsabilidad suya arreglar marci floyd para el seguimiento del lenka. MANEJO DE CONDICIONES NO URGENTES EN EL FUTURO 1) Si usted tiene un mdico de atencin primaria: Usted debera llamar a fierro mdico de atencin primaria antes de venir al departamento de emergencia. Despus de las horas de consultorio, fierro doctor o fierro asociado/a est disponible por telfono. El mdico o enfermero de juma en el servicio telefnico puede asesorarle por lady medio para atender el problema, o lenka contrario se puede programar marci floyd. 2) Si usted no tiene un mdico de atencin primaria: Llame al mdico o clnica de referencia que aparece abajo win las horas de consultorio para hacer marci floyd para que le vean. CLINICAS: [facility] [phone] [facility] [phone] [facility] [phone] [place] [address] [phone] [place] [address] [phone] [facility]. [phone] [facility] () Usted se eastman hecho un examen mdico de control que le indica que no est en marci condicin que requiera tratamiento urgente en el Departamento de Emergencia. Un estudio ms profundo y el tratamiento de fierro condicin pueden esperar sin ningn riesgo hasta que usted sea atendida/o en el consultorio de fierro mdico o marci cl samanta. Es responsabilidad suya arreglar marci floyd para el seguimiento del lenka. MANEJO DE CONDICIONES NO URGENTES EN EL FUTURO 1) Si usted tiene un mdico de atencin primaria: Usted debera llamar a fierro mdico de atencin primaria antes de venir al departamento de emergencia. Despus de las horas de consultorio, fierro doctor o fierro asociado/a est disponible por telfono. El mdico o enfermero de juma en el servicio telefnico puede asesorarle por lady medio para atender el problema, o lenka contrario se puede programar marci floyd. 2) Si usted no tiene un mdico de atencin primaria: Llame al mdico o condado institucions de referencia que aparece abajo win las horas de consultorio para hacer marci floyd para que le vean. SI USTED NO PUEDE PAGAR PARA LALITA UN MEDICO puede ir a: [facility] [address] [place] [address] [facility] [address] [place] [address] [facility] [address] [place] [address] [facility] [address] [place] [address] Additional Instructions: You need to follow-up with Dr. Dupont, the GI specialist for removal of the stent as an outpatient in his office. Llame al doctor nombrado abajo (Referral Sources) MAANA y morenita marci FLOYD PARA DENTRO DE MARCI SEMANA. Dgale a la secretaria que nosotros le instruimos hacer esta floyd.Avise o llame si fierro condicin se empeora antes de la floyd. JOCELYNE GUILLEN MD Dec 07, 2016 17:28
== END 2016-12-07 18:04 | disposition home or self-care (01) ==
LOC: FTE 16:09
DX: Z96.89 Presence of other specified functional implants (principal)
CPT/HCPCS: 99282

== ENCOUNTER 2017-05-10 11:03 | Inpatient (IN) | payer MEDICAID, OTHER ==
[~2017-05-10] VITALS: Ht 152.4 cm; Wt 55.0 kg
[2017-05-10] MEDS ORDERED: SOD CHLORIDE 0.9% 1,000 ML IV STA (11:24)
[2017-05-10] MEDS ORDERED: ONDANSETRON 4 MG INJ IV STA (11:24)
[2017-05-10] MEDS ORDERED: morphine 4 MG/ML VIAL IV STA (11:24)
[2017-05-10 11:49] LABS: ADD SCAN DIFF NO
[2017-05-10 11:56] LABS: BASOPHILS % 0.5 % (0.0-2.0); EOSINOPHILS # 0.2 10^3/ul (0.0-0.5); EOSINOPHILS % 2.3 % (0.0-7.0); HEMATOCRIT 42.4 % (37.0-47.0); HEMOGLOBIN 13.8 g/dl (12.0-16.0); LYMPHOCYTES # 2.3 10^3/ul (0.8-2.9); LYMPHOCYTES % 26.5 % (15.0-51.0); MEAN CORPUSCULAR HEMOGLOBIN 28.5 pg (29.0-33.0); MEAN CORPUSCULAR HGB CONC 32.5 g/dl (32.0-37.0); MEAN CORPUSCULAR VOLUME 87.6 fl (82.0-101.0); MEAN PLATELET VOLUME 10.3 fl (7.4-10.4); MONOCYTE # 0.5 10^3/ul (0.3-0.9); MONOCYTES % 5.6 % (0.0-11.0); NEUTROPHIL # 5.5 10^3/ul (1.6-7.5); NEUTROPHILS % 64.9 % (39.0-77.0); PLATELET COUNT 251 10^3/UL (140-415); RED BLOOD COUNT 4.84 10^6/ul (4.20-5.40); RED CELL DISTRIBUTION WIDTH 13.5 % (11.5-14.5); WHITE BLOOD COUNT 8.5 10^3/ul (4.8-10.8)
[2017-05-10 12:02] LABS: ADD UMIC NO; UR ASCORBIC ACID NEGATIVE (NEGATIVE); UR BILIRUBIN (Dip) NEGATIVE (NEGATIVE); UR BLOOD (Dip) NEGATIVE (NEGATIVE); UR CLARITY CLEAR (CLEAR); UR COLOR YELLOW (YELLOW); UR GLUCOSE (Dip) NEGATIVE (NEGATIVE); UR KETONES (Dip) NEGATIVE (NEGATIVE); UR LEUKOCYTE ESTERASE (Dip) NEGATIVE Leu/ul (NEGATIVE); UR NITRITE (Dip) NEGATIVE (NEGATIVE); UR SPECIFIC GRAVITY (Dip) 1.019 (1.003-1.030); UR TOTAL PROTEIN (Dip) NEGATIVE (NEGATIVE); UR UROBILINOGEN (Dip) NEGATIVE (NEGATIVE)
[2017-05-10 12:11] LABS: INR 0.87; PROTIME 11.8 Sec (12.2-14.2); PT RATIO 0.9
[2017-05-10 12:12] LABS: PARTIAL THROMBOPLASTIN TIME 27.5 Sec (25.0-35.0)
[2017-05-10 12:13] LABS: ALANINE AMINOTRANSFERASE 36 IU/L (13-69); ALBUMIN 4.1 g/dl (3.3-4.9); ALBUMIN/GLOBULIN RATIO 1.07; ALKALINE PHOSPHATASE 135 IU/L (42-121); AMYLASE 94 U/L (11-123); ANION GAP 20 (8-16); ASPARTATE AMINO TRANSFERASE 26 IU/L (15-46); BILIRUBIN,INDIRECT 0.2 mg/dl (0-1.1); BILIRUBIN,TOTAL 0.2 mg/dl (0.2-1.3); BLOOD UREA NITROGEN 17 mg/dl (7-20); CALCIUM 9.7 mg/dl (8.4-10.2); CARBON DIOXIDE 29 mmol/L (21-31); CHLORIDE 102 mmol/L (97-110); CREATININE 0.54 mg/dl (0.44-1.00); GLUCOSE 120 mg/dl (70-220); POTASSIUM 3.6 mmol/L (3.5-5.1); SODIUM 147 mmol/L (135-144); TOTAL PROTEIN 7.9 g/dl (6.1-8.1)
[2017-05-10 12:25] LABS: TROPONIN-I < 0.012 ng/ml (0.00-0.12)
[2017-05-10] MEDS ORDERED: IOHEXOL 300MG/ML 150 ML BTL ONE (13:03)
[2017-05-10] MEDS ORDERED: SOD CHLORIDE 0.9% 100 ML ONE (13:03)
--- NOTE | 2017-05-10 13:17 | RADRPT ---
PROCEDURE: US Abdomen. CLINICAL INDICATION: Abdominal Pain, GB REMOVED TECHNIQUE: Multiple real-time images were acquired of the right upper quadrant abdomen and retrope ritoneum utilizing a high resolution transducer. COMPARISON: Abdominal ultrasound 10/21/2016 FINDINGS: The liver is normal in size, measuring 14.9 cm at the right mid clavicular line. The liver demonstra alexi normal echogenicity. Small shadowing calcification is seen in the right hepatic lobe, nonspecif ic but possibly sequelae of prior granulomatous disease. No discrete solid hepatic mass is identifi ed. The portal vein is patent with normal direction of flow. No intrahepatic biliary dilatation is seen. The gallbladder surgically absent. The common bile duct measures 4mm in maximal dimension, within normal limits. The visualized portions of the pancreas are unremarkable. No free fluid is identified. The kidneys are normal in size, and demonstrate normal echogenicity and cortical thickness. The rig ht kidney measures 11.2 cm. There is no evidence of hydronephrosis on the right. No shadowing right nephrolithiasis is seen. IMPRESSION: 1. Status post interval cholecystectomy since prior ultrasound of 10/21/2016. 2. Small calcification in the right hepatic lobe, nonspecific but possibly representing sequela of p rior granulomatous disease. 3. Otherwise, unremarkable right upper quadrant ultrasound. RPTAT: PP Physician Winnie Date Time Electronically viewed and signed by Physician Winnie on 05/10/2017 13:16 RC/
--- NOTE | 2017-05-10 13:38 | RADRPT ---
PROCEDURE: CT Abdomen and pelvis with contrast. CLINICAL INDICATION: Abdominal pain TECHNIQUE: CT scan of the abdomen and pelvis with contrast was performed on a multidetector high-r esolution CT scan. The patient was scanned following the uncomplicated intravenous administration o f 90 ml Omnipaque-300. Coronal and sagittal reformatted images were obtained from the axial source images. Standard CT of the abdomen pelvis with contrast protocols were performed. The total exam CTDI equals 7.36 mGy and the total exam DLP equals 392.57 mGy-cm. One or more of the following dose reduction techniques were used: - Automated exposure control. - Adjustment of the mA and/or kV according to patient size. Use of iterative reconstruction technique. COMPARISON: CT chest 10/24/2016 FINDINGS: Status post cholecystectomy. There is a stent involving the left main intrapelvic duct, hepatic brook t, and common bile duct extending into the duodenum. There is pneumobilia present. No evidence lisa iary ductal dilation. The liver spleen pancreas and adrenal glands are unremarkable. The kidneys are normal in size without calcified renal calculi hydronephrosis or intra renal masses bilaterally. Note the floor in her bladder is prolapsed into the vagina consistent with a large cy stocele. The bladder is otherwise unremarkable. In the left adnexa is a 2.6 cm cyst likely a left ovarian cyst. Recommend clinical correlation and consideration of a pelvic ultrasound for further evaluation. No other pelvic masses. The uterus is not visualized consistent with hysterectomy. Negative for intra-abdominal free air, free fluid, abscesses or lymphadenopathy. There is a small hiatal hernia. The stomach is otherwise unremarkable. The small bowel and appendi x are unremarkable. There diverticular changes of the descending colon but no CT evidence of divert iculitis. The remainder the colon is unremarkable. There is atherosclerosis of the aorta but no evidence of aneurysm. There is nunez lobular basilar emp hysema and chronic interstitial lung disease. No basilar pleural effusions. There is degenerative changes lower thoracic and lumbar spine but no acute osseous findings are oste oblastic/osteolytic lesions. There is a small fat containing left inguinal hernia without herniated hour strangulation. IMPRESSION: 1. Status post cholecystectomy. Biliary stent in place as described above. Pneumobilia. 2. Prolapse urinary bladder and to the vagina consistent with a large cystocele. 3. 2.6 cm left adnexal cyst likely an ovarian cyst. Recommend clinical correlation and considerati on of a pelvic ultrasound. 4. Colonic diverticulosis as above without CT evidence of diverticulitis. Unremarkable appendix. 5. Small hiatal hernia. 6. Small left inguinal fat-containing hernia without herniated hour strangulation. RPTAT:AAJJ Physician Dulce Date Time Electronically viewed and signed by Gabriela Licea Physician on 05/10/2017 13:37 BM/
[2017-05-10] MEDS ORDERED: ONDANSETRON 4 MG INJ IV PRN ×2 (19:30→22:45)
[2017-05-10] MEDS ORDERED: ACETAMINOPHEN 325 MG TAB PO PRN (19:30)
--- NOTE | 2017-05-10 19:52 | ERA ---
ER Documentation Chief Complaint Date/Time DATE: 05/10/17 TIME: 19:47 Chief Complaint abd pain from stent in bile duct? HPI This is a very pleasant 66-year-old female that presents to the emergency department complaining of diffuse abdominal pain has been present for the past several days. The patient indicates she had a cholecystectomy performed October [address] Matthews. She also had a stent placed in the common bile duct to remove a stone in the CBD by Dr. Dupont. She was instructed to follow- up on an outpatient basis for stent removal. She indicates however that she was unable to successfully do this due to problems with insurance. She indicates that for the past 48 hours she has been having intermittent diffuse abdominal pain, cramping in nature, worse with movement but denies any hemoptysis hematemesis or melanotic stools. She has had no fevers or shaking or chills. She denies any chest pain or pressure that radiates to the neck arm back or jaw ROS All systems reviewed and are negative except as per history of present illness. Medications Home Meds Discontinued Scripts Albuterol Sulfate* (Proair HFA*) 8.5 Gm Hfa.aer.ad, 2 PUFF INH Q4H Y for WHEEZING AND SOB, #1 INHALER Prov:TIMRJOSE 10/24/16 Salmeterol Xinaf/Fluticasone* (Advair*) 250-50 Diskus Inhaler, 1 INH INH BID, # 1 INH Prov:TIMRJOSE 10/24/16 Allergies Allergies: Coded Allergies: No Known Allergy (Unverified , 05/10/17) PMhx/Soc History of Surgery: No Anesthesia Reaction: No Hx Neurological Disorder: No Hx Respiratory Disorders: No Hx Cardiac Disorders: No Hx Psychiatric Problems: No Hx Miscellaneous Medical Probl: No Hx Alcohol Use: No Hx Substance Use: No Hx Tobacco Use: No Smoking Status: Never smoker Physical Exam Vitals Vital Signs Date Time Temp Pulse Resp B/P Pulse Ox O2 Delivery O2 Flow Rate FiO2 05/10/17 18:36 62 16 131/70 96 Room Air 05/10/17 17:00 98.3 65 20 114/59 98 Room Air 05/10/17 15:00 98.3 68 20 132/70 98 Room Air 05/10/17 13:00 98.3 65 20 130/74 98 Room Air 05/10/17 11:30 98.3 67 20 131/69 96 Room Air 05/10/17 11:11 98.8 81 20 130/63 97 Physical Exam Constitutional:Well-developed. Well-nourished. HEENT:Normocephalic. Atraumatic.Pupils were equal round reactive to light. Moist mucous membranes.No tonsillar exudates. Neck: No nuchal rigidity. No lymphadenopathy. No posterior cervical spine tenderness or step-offs. Respiratory: Not using accessory muscles of respiration.Lungs were clear to auscultation bilaterally. No rhonchi. No rales. No wheezing. Cardiovascular: Regular rate regular rhythm.No murmurs. No rubs were appreciated.S1, S2 normal. Distal pulses are palpable 2+ bilaterally. GI: Abdomen was soft. Epigastric discomfort with no peritoneal signs. Non Distended. No pulsatile abdominal masses or bruits. No rebound. No guarding. Bowel sounds were present and normal. Muscle skeletal: Full range of motion of both the upper and lower extremities bilaterally.Normal muscle tone.No assymetrical calf tenderness or swelling. Skin: No petechia, no purpura. No lesions on the palms or the soles of the feet. No maculopapular rash. NEURO: Patient was alert, awake, orientated x3.No facial droop. Gait observed and normal with no ataxia.Speech had regular rate and rhythm. No focal neurological deficits. Result Diagram: 05/10/17 1139 05/10/17 1139 Results 24 hrs Laboratory Tests Test 05/10/17 11:39 05/10/17 11:46 White Blood Count 8.510^3/ul Red Blood Count 4.8410^6/ul Hemoglobin 13.8g/dl Hematocrit 42.4% Mean Corpuscular Volume 87.6fl Mean Corpuscular Hemoglobin 28.5pg Mean Corpuscular Hemoglobin Concent 32.5g/dl Red Cell Distribution Width 13.5% Platelet Count 66834^3/UL Mean Platelet Volume 10.3fl Neutrophils % 64.9% Lymphocytes % 26.5% Monocytes % 5.6% Eosinophils % 2.3% Basophils % 0.5% Nucleated Red Blood Cells % 0.0/100WBC Neutrophils # 5.510^3/ul Lymphocytes # 2.310^3/ul Monocytes # 0.510^3/ul Eosinophils # 0.210^3/ul Basophils # 0.010^3/ul Nucleated Red Blood Cells # 0.010^3/ul Prothrombin Time 11.8Sec Prothrombin Time Ratio 0.9 INR International Normalized Ratio 0.87 Activated Partial Thromboplast Time 27.5Sec Sodium Level 147mmol/L Potassium Level 3.6mmol/L Chloride Level 102mmol/L Carbon Dioxide Level 29mmol/L Anion Gap 20 Blood Urea Nitrogen 17mg/dl Creatinine 0.54mg/dl Glucose Level 120mg/dl Calcium Level 9.7mg/dl Total Bilirubin 0.2mg/dl Direct Bilirubin 0.00mg/dl Indirect Bilirubin 0.2mg/dl Aspartate Amino Transf (AST/SGOT) 26IU/L Alanine Aminotransferase (ALT/SGPT) 36IU/L Alkaline Phosphatase 135IU/L Troponin I < 0.012ng/ml Total Protein 7.9g/dl Albumin 4.1g/dl Globulin 3.80g/dl Albumin/Globulin Ratio 1.07 Amylase Level 94U/L Lipase 71U/L Urine Color YELLOW Urine Clarity CLEAR Urine pH 6.0 Urine Specific Vera 1.019 Urine Ketones NEGATIVEmg/dL Urine Nitrite NEGATIVEmg/dL Urine Bilirubin NEGATIVEmg/dL Urine Urobilinogen NEGATIVEmg/dL Urine Leukocyte Esterase NEGATIVELeu/ul Urine Hemoglobin NEGATIVEmg/dL Urine Glucose NEGATIVEmg/dL Urine Total Protein NEGATIVEmg/dl Current Medications Medications (Trade) Dose Ordered Sig/Sumi Route PRN Reason Start Time Stop Time Status Last Admin Dose Admin Sodium Chloride (NS) 1,000 ml @ 1,000 mls/hr Q1H STAT IV 05/10/17 11:24 05/10/17 12:23 DC 05/10/17 12:19 Morphine Sulfate (morphine) 4 mg ONCE STAT IV 05/10/17 11:24 05/10/17 11:25 DC 05/10/17 12:19 Ondansetron HCl 4 mg 4 mg ONCE STAT IV 05/10/17 11:24 05/10/17 11:25 DC 05/10/17 12:19 Sodium Chloride (NS) 100 ml @ ud STK-MED ONCE .ROUTE 05/10/17 13:03 05/10/17 13:04 DC 05/10/17 13:22 Iohexol (Omnipaque 300mg/ ml) 150 ml STK-MED ONCE .ROUTE 05/10/17 13:03 05/10/17 13:04 DC 05/10/17 13:22 Ondansetron HCl (Zofran Inj) 4 mg BRIDGE ORDER PRN IV NAUSEA AND/OR VOMITING 05/10/17 19:30 05/11/17 19:29 Acetaminophen (Tylenol Tab) 650 mg ER BRIDGE PRN PO MILD PAIN/FEVER 05/10/17 19:30 05/11/17 19:29 Procedures/MDM This patient presented to the emergency department with abdominal pain and was seen and evaluated by myself. My differential diagnosis included but was not limited to abdominal aortic aneurysm, appendicitis, pancreatitis, perforated peptic ulcer, perforated viscus, Boerhaaves syndrome or visceral pain such as diverticulitis, DKA, esophagitis, hepatitis or bowel obstruction. The patient was placed on a testing manager, continuous pulse oximetry, and IV access was established by nursing staff. Patient received intravenous morphine and Zofran for analgesic control. I obtained a repeat CT scan of the abdomen reviewed by myself the radiologist: 1. Status post cholecystectomy. Biliary stent in place as described above. Pneumobilia. 2. Prolapse urinary bladder and to the vagina consistent with a large cystocele. 3. 2.6 cm left adnexal cyst likely an ovarian cyst. Recommend clinical correlation and consideration of a pelvic ultrasound. 4. Colonic diverticulosis as above without CT evidence of diverticulitis. Unremarkable appendix. 5. Small hiatal hernia. 6. Small left inguinal fat-containing hernia without herniated hour strangulation. Given that the patient had no leukocytosis and no peritoneal signs I did feel the pneumobilia was likely secondary to postoperative changes and therefore did not require emergent surgical intervention At this time I spoke with Dr. Banegas. He currently came to the emergency department to be consulted on the patient. Given the severity of the patient's pain he kindly stated he will be consulted on the case and remove the stent first thing in the morning. The patient will be admitted to the panel physician Dr. Jacinto to the medical floor in serious condition. 12 Lead EKG tracing ordered and reviewed by myself showed: Normal sinus rhythm of 74 bpm and no arrhythmia. DC interval normal. QRS duration normal. No ST segment elevation No ST segment depression. No changes consistent with acute ischemia. Departure Diagnosis: Primary Impression: Intractable abdominal pain Additional Impression: Encounter for removal of biliary stent Condition: Serious ODILON WALTERS May 10, 2017 19:52
[2017-05-10 20:34] VITALS: TEMP 98.7
[2017-05-10 20:45] VITALS: BP 136/64; PULSE 76; RESP 18
[2017-05-10 21:50] VITALS: Ht 152.4 cm; Wt 55.0 kg
[2017-05-10] MEDS ORDERED: morphine 4 MG/ML VIAL IV PRN (22:45)
[2017-05-10] MEDS: DEXTROSE 5%-0.45% NACL 1,000 ML IV SCH (23:41)
--- NOTE | 2017-05-11 07:37 | HP ---
Date/Time of Note Date/Time of Note DATE: 05/11/17 TIME: 07:24 Assessment/Plan VTE Prophylaxis VTE Prophylaxis Intervention: SCD's Lines/Catheters IV Catheter Type (from Nrs): Saline Lock Assessment/Plan Assessment/Plan 1. Abdominal pain, no clear etiology -Patient had laparoscopy cholecystectomy and placement of CBD stent about 6 months ago. She will be seen by Dr. Dupont from gastroenterology so we will await his recommendations. In the meantime we will continue pain medications as needed. 2. History of COPD -Currently no sign of exacerbation. We will treat with breathing treatments and also a steroid as as needed 3. History of dyslipidemia - continue statin 4. Mild Hypernatremia - will check a.m. labs, for now will just monitor 5. History of diverticulosis and diverticulitis -No indication of diverticulitis on the CAT scan. Patient had been advised about the importance of avoiding constipation HPI/ROS Admit Date/Time Admit Date/Time May 10, 2017 at 19:05 Hx of Present Illness This is a 66-year-old female with a history of COPD dyslipidemia diverticulitis/ diverticulosis and cholecystitis and choledocholithiasis/status post lap choley and ERCP with stent placement. About 6 months ago, patient was here for abdominal pain and that she was diagnosed with cholecystitis and choledocholithiasis. She underwent laparoscopy cholecystectomy by Dr. Matthews and ERCP with CBD stent placement by Dr. Dupont. Patient was supposed to follow -up as outpatient with a GI for the removal of the stent but she states she was unable to do so because of insurance reasons. When presented to the ER Dr. Banegas was notified who reportedly stated that he will remove the stent while in-house. CT abdomen pelvis shows stent in place, pneumobilia, and a large cystocele. After admission, the patient reported that her pain has actually completely resolved and she is feeling comfortable. Basic CBC and CMP are within acceptable range except a sodium of 147 and alk phos of 135. . PMH/Family/Social Past Medical History 1. COPD 2. Dyslipidemia 3. Diverticulosis/diverticulitis 4. Cholecystitis and choledocholithiasis Past Surgical History Past Surgical Hx: cholecystectomy Social History Alcohol Use: none Smoking Status: Never smoker Drug Use: none Exam/Review of Systems Vital Signs Vitals Vital Signs Date Time Temp Pulse Resp B/P Pulse Ox O2 Delivery O2 Flow Rate FiO2 05/10/17 20:45 97.7 76 18 136/64 97 Room Air Intake and Output 05/10/17 05/10/17 05/11/17 15:00 23:00 07:00 Intake Total 500 ml Balance 500 ml Exam Constitutional: alert, oriented, well developed Head: atraumatic, normocephalic Eyes: EOMI, PERRL Respiratory: clear to auscultation, normal air movement Cardiovascular: nl pulses, regular rate and rhythm Gastrointestinal: non-tender, soft Extremities: normal pulses Labs Result Diagram: 05/10/17 1139 05/10/17 1139 Medications Medications Current Medications Morphine Sulfate (morphine) 3 mg Q4H PRN IV PAIN; Start 05/10/17 at 22:45 Ondansetron HCl 4 mg 4 mg Q6H PRN IV NAUSEA AND/OR VOMITING; Start 05/10/17 at 22:45 Dextrose/Sodium Chloride (D5-1/2ns) 1,000 ml @ 100 mls/hr Q10H IV Last administered on 05/10/17t 23:41; Admin Dose 100 MLS/HR; Start 05/10/17 at 22:45 BOB BOWLES MD May 11, 2017 07:35
[2017-05-11 08:07] LABS: ADD SCAN DIFF NO
[2017-05-11 08:14] LABS: BASOPHIL # 0.1 10^3/ul (0.0-0.1); BASOPHILS % 0.7 % (0.0-2.0); EOSINOPHILS # 0.2 10^3/ul (0.0-0.5); EOSINOPHILS % 2.8 % (0.0-7.0); HEMATOCRIT 39.3 % (37.0-47.0); HEMOGLOBIN 12.5 g/dl (12.0-16.0); MEAN CORPUSCULAR HGB CONC 31.8 g/dl (32.0-37.0); MEAN CORPUSCULAR VOLUME 88.1 fl (82.0-101.0); MEAN PLATELET VOLUME 10.4 fl (7.4-10.4); MONOCYTE # 0.6 10^3/ul (0.3-0.9); NEUTROPHIL # 4.7 10^3/ul (1.6-7.5); NEUTROPHILS % 62.2 % (39.0-77.0); PLATELET COUNT 227 10^3/UL (140-415); RED BLOOD COUNT 4.46 10^6/ul (4.20-5.40); RED CELL DISTRIBUTION WIDTH 13.9 % (11.5-14.5); WHITE BLOOD COUNT 7.5 10^3/ul (4.8-10.8)
[2017-05-11] MEDS: DEXTROSE 5%-0.45% NACL 1,000 ML IV SCH ×3 (08:14→17:41)
[2017-05-11 08:23] VITALS: BP 104/54; RESP 18
[2017-05-11 08:32] LABS: ALBUMIN 3.5 g/dl (3.3-4.9); ALBUMIN/GLOBULIN RATIO 1.02; BILIRUBIN,INDIRECT 0.2 mg/dl (0-1.1); BILIRUBIN,TOTAL 0.2 mg/dl (0.2-1.3); CALCIUM 8.8 mg/dl (8.4-10.2); CREATININE 0.5 mg/dl (0.44-1.00); POTASSIUM 3.5 mmol/L (3.5-5.1); TOTAL PROTEIN 6.9 g/dl (6.1-8.1)
--- NOTE | 2017-05-11 11:54 | PN ---
Date/Time of Note Date/Time of Note DATE: 05/11/17 TIME: 11:45 Assessment/Plan VTE Prophylaxis VTE Prophylaxis Intervention: SCD's Lines/Catheters IV Catheter Type (from [facility]): Peripheral IV Assessment/Plan Chief Complaint/Hosp Course Assessment and plan 1. Abdominal pain. Patient did have previous history of laparoscopic cholecystectomy and placement of CBD stent 6 months ago. Patient did not have stent removed since then. Patient to be seen by ethylene plant operator. Tentative plan for stent removal 2. History of COPD. No active bronchospasm was noted at this time. Off O2. Monitor for now. 3. History of dyslipidemia. Patient resumed on statin medication once able to tolerate oral intake Disposition and plan: Tentative plan for stent removal from CBD. We will follow -up with ethylene plant operator. Discussed plan of care with Dr. Acosta Problems: Subjective 24 Hr Interval Summary Free Text/Dictation Still reports having some abdominal pain more notable on right upper abdominal quadrant on palpation. Family at bedside. Exam/Review of Systems Vital Signs Vitals Vital Signs Date Time Temp Pulse Resp B/P Pulse Ox O2 Delivery O2 Flow Rate FiO2 05/11/17 08:23 97.7 64 18 104/54 98 05/10/17 20:45 Room Air Intake and Output 05/10/17 05/10/17 05/11/17 15:00 23:00 07:00 Intake Total 500 ml Balance 500 ml Exam Constitutional: alert, oriented Psych: nl mood/affect Neck: No jvd Respiratory: clear to auscultation, normal air movement Cardiovascular: regular rate and rhythm Gastrointestinal: soft, tender (Right upper abdominal quadrant) Neurological: RADIATION THERAPY TECHNICIAN II-XII intact, nl mental status, nl speech Results Result Diagram: 05/11/17 0742 05/11/17 0742 Results 24 hrs Laboratory Tests Test 05/10/17 11:46 05/11/17 07:42 Urine Color YELLOW Urine Clarity CLEAR Urine pH 6.0 Urine Specific Bertha 1.019 Urine Ketones NEGATIVE Urine Nitrite NEGATIVE Urine Bilirubin NEGATIVE Urine Urobilinogen NEGATIVE Urine Leukocyte Esterase NEGATIVE Urine Hemoglobin NEGATIVE Urine Glucose NEGATIVE Urine Total Protein NEGATIVE White Blood Count 7.5 Red Blood Count 4.46 Hemoglobin 12.5 Hematocrit 39.3 Mean Corpuscular Volume 88.1 Mean Corpuscular Hemoglobin 28.0 L Mean Corpuscular Hemoglobin Concent 31.8 L Red Cell Distribution Width 13.9 Platelet Count 227 Mean Platelet Volume 10.4 Neutrophils % 62.2 Lymphocytes % 26.0 Monocytes % 8.0 Eosinophils % 2.8 Basophils % 0.7 Neutrophils # 4.7 Lymphocytes # 2.0 Monocytes # 0.6 Eosinophils # 0.2 Basophils # 0.1 Nucleated Red Blood Cells # 0.0 Sodium Level 145 H Potassium Level 3.5 Chloride Level 102 Carbon Dioxide Level 30 Anion Gap 17 H Blood Urea Nitrogen 11 Creatinine 0.50 Glucose Level 140 Calcium Level 8.8 Total Bilirubin 0.2 Direct Bilirubin 0.00 Indirect Bilirubin 0.2 Aspartate Amino Transf (AST/SGOT) 25 Alanine Aminotransferase (ALT/SGPT) 30 Alkaline Phosphatase 112 Total Protein 6.9 # Albumin 3.5 Globulin 3.40 H Albumin/Globulin Ratio 1.02 Medications Medications Current Medications Morphine Sulfate (morphine) 3 mg Q4H PRN IV PAIN; Start 05/10/17 at 22:45 Ondansetron HCl 4 mg 4 mg Q6H PRN IV NAUSEA AND/OR VOMITING; Start 05/10/17 at 22:45 Dextrose/Sodium Chloride (D5-1/2ns) 1,000 ml @ 100 mls/hr Q10H IV Last administered on 05/11/17 09:00; Admin Dose 100 MLS/HR; Start 05/10/17 at 22:45 JOSE PETERSEN May 11, 2017 11:53
[2017-05-11 21:02] VITALS: BP 127/67; RESP 20
[2017-05-12] VITALS (24 sets, daily range): BP systolic 95–158; BP diastolic 55–82; PULSE 65–96; RESP 14–28
[2017-05-12] MEDS: DEXTROSE 5%-0.45% NACL 1,000 ML IV SCH ×2 (04:45→09:52)
[2017-05-12] MEDS ORDERED: IOHEXOL 300MG/ML 30 ML BTL ONE (09:45)
[2017-05-12] MEDS ORDERED: INDOMETHACIN 50 MG SUPP PR ONE (09:45)
--- NOTE | 2017-05-12 13:00 | PN ---
Date/Time of Note Date/Time of Note DATE: 05/12/17 TIME: 12:56 Assessment/Plan VTE Prophylaxis VTE Prophylaxis Intervention: SCD's Lines/Catheters IV Catheter Type (from Nrsg): Peripheral IV Assessment/Plan Chief Complaint/Hosp Course Assessment and plan 1. Abdominal pain. Patient did have previous history of laparoscopic cholecystectomy and placement of CBD stent 6 months ago. Patient did not have stent removed since then. Patient to be seen by review rn. Tentative plan for stent removal today 2. History of COPD. No active bronchospasm was noted at this time. Off O2. Monitor for now. 3. History of dyslipidemia. Patient resumed on statin medication once able to tolerate oral intake Disposition and plan: Tentative plan for stent removal from CBD. Continue with analgesics as needed. Discussed plan of care with Dr. Acosta Problems: Subjective 24 Hr Interval Summary Free Text/Dictation Comfortable at present. No specific complaints. Exam/Review of Systems Vital Signs Vitals Vital Signs Date Time Temp Pulse Resp B/P Pulse Ox O2 Delivery O2 Flow Rate FiO2 05/12/17 07:56 98.0 63 15 120/57 100 05/10/17 20:45 Room Air Intake and Output 05/11/17 05/11/17 05/12/17 15:00 23:00 07:00 Intake Total 500 ml 1000 ml 350 ml Balance 500 ml 1000 ml 350 ml Exam Constitutional: alert, oriented Head: normocephalic Neck: supple Respiratory: clear to auscultation Cardiovascular: regular rate and rhythm Gastrointestinal: soft, No tender Musculoskeletal: nl extremities to inspection Neurological: SIGN CARPENTER II-XII intact, nl mental status, nl speech Results Result Diagram: 05/11/17 0742 05/11/17 0742 Medications Medications Current Medications Morphine Sulfate (morphine) 3 mg Q4H PRN IV PAIN; Start 05/10/17 at 22:45 Ondansetron HCl 4 mg 4 mg Q6H PRN IV NAUSEA AND/OR VOMITING; Start 05/10/17 at 22:45 Dextrose/Sodium Chloride (D5-1/2ns) 1,000 ml @ 100 mls/hr Q10H IV Last administered on 05/12/17 09:52; Admin Dose 100 MLS/HR; Start 05/10/17 at 22:45 JOSE PETERSEN May 12, 2017 13:00
[2017-05-12] MEDS ORDERED: PROPOFOL 20 ML ONE (14:57)
[2017-05-12] MEDS ORDERED: ROCURONIUM 50 MG INJ ONE (14:57)
[2017-05-12] MEDS ORDERED: NEOSTIGMINE 3 MG/3 ML SYRINGE ONE (14:57)
[2017-05-12] MEDS ORDERED: GLYCOPYRROLATE 0.4 MG INJ ONE (14:57)
[2017-05-12] MEDS ORDERED: CEFAZOLIN 1 GM INJ ONE (14:57)
[2017-05-12] MEDS ORDERED: DEXAMETHASONE 4 MG/ML 1 ML INJ ONE (14:58)
[2017-05-12] MEDS ORDERED: FENTAnyl 50 MCG/ML VIAL ONE (14:58)
[2017-05-12] MEDS ORDERED: ONDANSETRON 4 MG INJ ONE (14:58)
[2017-05-12] MEDS ORDERED: MIDAZOLAM 1 MG/ML 2 ML INJ ONE (14:58)
[2017-05-12] MEDS ORDERED: SUGAMMADEX SODIUM 200 MG/2 ML VIAL IV ONE (15:32)
--- NOTE | 2017-05-12 19:47 | RADRPT ---
PROCEDURE: Intraoperative imaging for ERCP with fluoroscopy. CLINICAL INDICATION: Right upper quadrant pain. Intraoperative. TECHNIQUE: 13 images of the right upper quadrant of the abdomen were obtained in the operating serafin m with an image intensifier. No radiologist was in attendance. 31 seconds of fluoroscopy time was used. COMPARISON: CT scan of the abdomen and pelvis dated 05/10/2017. FINDINGS: Images demonstrate the endoscope in position. The initial image demonstrates a stent in satisfactor y position and surgical clips from previous cholecystectomy. Subsequent images demonstrate removal of the stent. Contrast was injected into the common bile duct. Common bile duct is dilated. A bal loon sweep was made. IMPRESSION: 1. ERCP as described above. RPTAT: QQ .German Gibbs MD, MD Date Time Electronically viewed and signed by .German Gibbs MD, on 05/12/2017 19:47 .R/
[2017-05-12] MEDS ORDERED: ALBUTEROL 18 GM INHALER INH PRN (21:30)
[2017-05-13 02:00] VITALS: BP 107/56; RESP 18
[2017-05-13] MEDS: DEXTROSE 5%-0.45% NACL 1,000 ML IV SCH ×2 (02:03→10:45)
[2017-05-13 08:08] VITALS: BP 130/64; RESP 18
--- NOTE | 2017-05-13 13:49 | DS ---
Date/Time of Note Date/Time of Note DATE: 05/13/17 TIME: 13:45 Discharge Summary Admission/Discharge Info Admit Date/Time May 10, 2017 at 19:05 Discharge Date/Time Discharge Diagnosis 1. Abdominal pain from previously placed CBD stent (was placed 6 months ago due to insurance issues she was not able to follow-up and have stent removed) 2. History of COPD. 3. History of dyslipidemia. Patient Condition: Stable Consults 1. Dr. Murali Dupont Hospital Course This is a 66-year-old female with history of COPD, disc edema, diverticulitis, diverticulosis, choledocholithiasis and cholecystitis status post arthroscopic cholecystectomy and ERCP with stent placement who came to [facility] [place] due to reports of abdominal pain. According to report she 6 months ago had abdominal pain and had choledocholithiasis and cholecystitis at that time. She did have cholecystectomy by Dr. Matthews and she also had a CBD stent placement by . Patient was supposed to follow-up with GI for removal of stent however was unable to due to her insurance issues. Due to this she did present with abdominal pain and as such was admitted to [facility] [place] for further evaluation. She was again seen by heel former and did have her CBD stent removed. We did monitor her BMP and CBC which overall did remain stable. She did tolerate procedure well and she did have good response to therapeutic treatment. During the course of stay she did improve. She was otherwise optimized medically. She was continued on her diet and she did tolerate well. She did have history of COPD but no active bronchospasm was noted with a monitor for now. She did have dyslipidemia and was advised low- fat low-cholesterol diet. During her course of stay she did improve. The plan of care was discussed with the patient and patient did verbalize her understanding. On the day of discharge patient was in stable condition Discussed plan of care with Dr. Acosta Home Meds Discontinued Scripts Albuterol Sulfate* (Proair HFA*) 8.5 Gm Hfa.aer.ad, 2 PUFF INH Q4H Y for WHEEZING AND SOB, #1 INHALER Prov:JOSE PETERSEN 10/24/16 Salmeterol Xinaf/Fluticasone* (Advair*) 250-50 Diskus Inhaler, 1 INH INH BID, # 1 INH Prov:JOSE PETERSEN 10/24/16 Primary Care Provider Care Physician No Primary JOSE PETERSEN May 13, 2017 13:49
--- NOTE | 2017-05-15 08:12 | GILP ---
DATE OF PROCEDURE: PROCEDURE: 1. Endoscopic retrograde cholangiopancreatography. 2. Removal of common bile duct stent. 3. Removal of sludge from the common bile duct. PREOPERATIVE DIAGNOSIS: Patient had ERCP done in the past and the CBD stent was placed after removal of the CBD stones. At this time, procedure is performed to remove the CBD stent and stones if any found. POSTOPERATIVE DIAGNOSIS: CBD stent was removed. Sludge was removed from the common bile duct. DESCRIPTION OF PROCEDURE: After informed written consent was obtained, the patient was intubated by anesthesiologist, Dr. Beto Heart. While the patient was in a prone position, the Olympus video side-viewing duodenoscope was inserted into the oropharynx and then into esophagus, and then stomach and duodenum. The ampulla was located in the normal location. There is a stent noted to be coming out of the ampulla. By using the snare, the stent was grabbed from the common bile duct. The stent was removed through the biopsy channel of the scope. At this time, 9 x 12 stone extraction balloon was inserted into the common hepatic duct, and contrast was injected. No major filling defects were noted. By doing balloon-sweeping technique, significant amount of sludge was removed from the common bile duct and no more filling defects noted. The scope was withdrawn. The procedure was terminated. PLAN: Recommend to follow the patient closely. Dictated By: Murali Dupont MD /clemente/ginny /Document#: [id number] CC: Nikita Jacinto MD;*[facility]*
== END 2017-05-13 14:05 | disposition home or self-care (01) | DRG 949 ==
LOC: E/R 11:03 → MS1 19:05
PROVIDERS: ADMIT Internal Medicine; ATTEND Internal Medicine
PROC: 0FPB8DZ Removal of Intraluminal Device from Hepatobiliary Duct, Via Natural or Artificial Opening Endoscopic (ICD-10-PCS; principal; 2017-05-10)
PROC: 0FC98ZZ Extirpation of Matter from Common Bile Duct, Via Natural or Artificial Opening Endoscopic (ICD-10-PCS; 2017-05-10)
DX: T85.848A Pain due to other internal prosthetic devices, implants and grafts, initial encounter (principal); E87.0 Hyperosmolality and hypernatremia; Z90.49 Acquired absence of other specified parts of digestive tract; J44.9 Chronic obstructive pulmonary disease, unspecified; E78.5 Hyperlipidemia, unspecified; Y84.8 Other medical procedures as the cause of abnormal reaction of the patient, or of later complication, without mention of misadventure at the time of the procedure
CPT/HCPCS: 36415; 74177; 74330; 76705; 80053; 81003; 82150; 83690; 84484; 85025; 85610; 85730; 87040; 93005; 96374; 96375; J0690; J1100; J2250; J2270; J2405; J2710; J3010; J7030; J7042; Q9967

== ENCOUNTER 2018-08-06 18:00 | Emergency (ER) | END 2018-08-06 23:28 | disposition home or self-care (01) ==